=== PATIENT | female | born 1955 | race Caucasian/White ===

== ENCOUNTER 2023-01-25 12:03 | Inpatient (IN) | payer MEDICARE, MEDICAID ==
[~2023-01-25] VITALS: Ht 165.1 cm; Wt 94.0 kg
[~2023-01-25 12:03] MED LIST: ALLOPURINOL100 MG PO; AMLODIPINE BESY10 MG PO; AMOX TR-K CLV1 EAC1 PO; ATORVASTATIN CA80 MG PO; AUGMENTIN 500-1 EACH PO; AZATHIOPRINE50 MG PO; CARVEDILOL25 MG PO; FLUTICASONE PRO16 GM NAS; GABAPENTIN100 MG PO; ISOSORBIDE MON120 MG PO; LIALDA1.2 GM PO; LOSARTAN POTASS25 MG PO; LOSARTAN POTASS50 MG PO; MESALAMINE1.2 GM PO; METFORMIN HCL500 MG PO; QVAR REDIHALE10.6 G1; SIMVASTATIN10 MG PO; SODIUM BICARBO650 MG PO; VENTOLIN HFA18 GM INH; VITAMIN B-121000 MCG PO; VITAMIN D325 MCG PO
[2023-01-25 12:14] LABS: BASOPHILS 2.2 % (0-2); EOSINOPHILS 0.9 % (0-6); HEMATOCRIT 30.9 % (35.0-50.0); HEMOGLOBIN 9.7 g/dL (12.0-18.0); LYMPHOCYTES 9.8 % (24-44); MCH 30.4 (27-36); MCHC 31.3 g/dl (30-36); MONOCYTES 5.7 % (0-12); NEUTROPHILS 81.4 % (39-80); PLATELET COUNT 85 K/uL (140-440); RBC 3.19 M/ul (4.3-5.7); RDW 17.3 (10.5-15.0)
[2023-01-25 12:28] LABS: BASE EXCESS, BLOOD GAS -12.2 mmol/L (-2-2); PCO2, BLOOD GAS 26.2 mmHg (35-45); PO2, BLOOD GAS 87 mmHg (80-100); TOTAL CO2, BLOOD GAS 13.8
[2023-01-25 12:30] LABS: OXYGEN RECEIVED, BLOOD GAS 80%
[2023-01-25 12:41] LABS: ALBUMIN 3.4 g/dL (3.4-5.0); ALBUMIN/GLOBULIN RATIO 0.71 (1.1-2.4); ANION GAP 21.2 (7-21); BILIRUBIN, TOTAL 1.6 ng/dL (0.2-1.0); BUN/CREATININE RATIO 16.17 (6.0-28.6); CALCIUM 8.9 mg/dL (8.5-10.1); CREATININE, SERUM 2.35 mg/dL (0.55-1.02); POTASSIUM 4.2 mmol/L (3.5-5.1); PROTEIN, TOTAL 8.2 g/dL (6.4-8.2)
[2023-01-25 12:56] LABS: LACTIC ACID, BLOOD 5.7 mmol/L (0.4-2.0)
[2023-01-25 13:11] LABS: INFLUENZA B NAA NEGATIVE (NEGATIVE); RESPIRATORY SYNCYTIAL VIR NAA NEGATIVE (NEGATIVE)
[2023-01-25 13:54] VITALS: BP 99/69
--- NOTE | 2023-01-25 14:18 | NUR ---
1330-transported pt to [facility] rm 127 from er. report received from Ro and Eugenia RNs. pt on BIPAP and multiple abx. assessment complete. daughter Marce in room with pt.
--- NOTE | 2023-01-25 14:23 | NUR ---
MD AWARE OF FINDINGS. PT POSITIVE FOR SEPSIS AND RECEIVEING TREATMENTS.
[2023-01-25 14:58] VITALS: BP 104/74
[2023-01-25 15:04] LABS: BILIRUBIN, URINE NEGATIVE (negative); BLOOD/HGB, URINE SMALL (Negative); KETONE, URINE NEGATIVE (Negative); LEUK ESTERASE, URINE NEGATIVE (negative); NITRITE, URINE NEGATIVE (negative)
[2023-01-25 15:14] LABS: BACTERIA, URINE RARE /hpf (negative); CASTS, URINE NONE SEEN \\lpf; COLLECTION TYPE, URINE CATH; CRYSTALS, URINE NONE SEEN (0-1+); EPITHELIAL CELLS, URINE SQUAMOUS 2+ /lpf (0-1+); REFLEX CULTURE, URINE No (No); WHITE BLOOD CELLS, URINE 0-1 /HPF (0-5)
[2023-01-25 15:16] LABS: BASE EXCESS, BLOOD GAS -7.7 mmol/L (-2-2); HCO3, BLOOD GAS 16.2 mmol/L (22-26); O2 SATURATION, BLOOD GAS 95.1 % (95.0-100.0); PH, BLOOD GAS 7.36 (7.35-7.45); PO2, BLOOD GAS 80 mmHg (80-100)
[2023-01-25 15:17] LABS: OXYGEN RECEIVED, BLOOD GAS 50%
--- NOTE | 2023-01-25 15:17 | NUR ---
pt laying right lateral with bipap in place. pt resting with eyes closed. pt medicated for fever. call light given. pt tolerating po fluids
[2023-01-25 15:43] LABS: BASOPHILS 0.3 % (0-2); EOSINOPHILS 0.1 % (0-6); HEMATOCRIT 26.5 % (35.0-50.0); HEMOGLOBIN 8.6 g/dL (12.0-18.0); LYMPHOCYTES 6.2 % (24-44); MCH 30.5 (27-36); MCHC 32.5 g/dl (30-36); MCV 93.8 fl (81-99); MONOCYTES 2.5 % (0-12); NEUTROPHILS 90.9 % (39-80); PLATELET COUNT 77 K/uL (140-440); RBC 2.82 M/ul (4.3-5.7); RDW 15.9 (10.5-15.0)
[2023-01-25 15:54] LABS: INR 1.23 (0.80-1.30); PARTIAL THROMBOPLASTIN TIME 30.2 Sec (22.9-41.3); PROTIME 14.9 Sec (11.2-14.2)
[2023-01-25 16:00] VITALS: BP 96/61
--- NOTE | 2023-01-25 16:00 | NUR ---
CRITICAL TROPONIN LEVEL CALLED FROM LAB. MD NOTIFIED. ORDERS TO START HEPARIN BOLUS FOLLOWED BY DRIP. PT UPDATED ON LAB VALUES AND AGREEABLE WITH PLAN OF CARE.
[2023-01-25 17:00] VITALS: BP 112/72
--- NOTE | 2023-01-25 17:00 | NUR ---
DR. MERRITT AWARE OF MG LEVEL. MG 2 GMS ORDERED. PATEINT IS AWARE OF PENDING TRANSFER TO HIGHER LEVEL OF CARE. PATIENTS MCKAY (IZAIAH) UPDATED VIA PHONE. PATIENT IS RESTING IN BED, BIPAP REMAINS ON. REMAINS ON 50% FIO2 I-17/E-8.
--- NOTE | 2023-01-25 17:08 | NUR ---
AND NIMO RN CALLING [facility] TO [facility]SF[facility] PT. PT AGREEABLE WITH PLAN TO TRANSFER.PT REMAINS ON BIPAP @ 50% FIO2 AND IS TOLERATING. VSS. HEPARIN DRIP CONTINUED.
[2023-01-25 18:00] VITALS: BP 113/76
--- NOTE | 2023-01-25 18:53 | NUR ---
1849-CALL FROM TRANSFER CENTER FOR ACCEPTANCE TO [facility]
[2023-01-25 19:06] VITALS: BP 103/67
--- NOTE | 2023-01-25 19:19 | NUR ---
CALLED REPORT TO JESICA STARK AT [facility]
--- NOTE | 2023-01-25 22:06 | NUR ---
PATIENT KAITLIN WAS DISCHARGED TO [facility] IN [place], [place] VIA [facility]. SHE WAS TRANSFERRED VIA GURNEY WITH VSS AND AND WDL PER MONITOR. BIPAP REMAINED IN USE 17/8 40%FIO2 RR 16. O2 SATURATION 97%. NEURO- ALERT AND ORIENTED X4. DENIES PAIN OR DISCOMFORT MOVES ALL EXTREMITIES, PERRL CARDIAC- S1/S2, AFEBRILE, +1EDEMA IN BLE RESP- BIPAP IN PLACE, DIMINISHED LUNG SOUNDS, ABLE TO COUGH AND DEEP BREATH, ABLE TO CLEAR AIRWAY, BIPAP SETTING NOTED ABOVE GI/- FIRM AND DISTENDED ABDOMEN, NORMOACTIVE BOWEL TONES IN ALL 4 QUADRANTS, NON-TENDER ABDOMEN INT-SEE ASSESSMENT LDA- BUE IV LINES PATENT AND INTACT INDWELLING GODDARD CATHETER REPORT CALLED TO ANITHA AT [facility] CARDIAC ICU
--- NOTE | 2023-01-25 22:30 | NUR ---
update given to patient's daughter ruiz
--- NOTE | 2023-01-27 06:52 | EKG ---
[facility] [address] [facility] [place] [address] Signed Accelerated Junctional rhythm Nonspecific ST and T wave abnormality Abnormal ECG When compared with ECG of 09-DEC-2022 17:18, Junctional rhythm has replaced Sinus rhythm Vent. rate has increased BY 46 BPM T wave inversion more evident in Inferior leads Nonspecific T wave abnormality, worse in Lateral leads Confirmed by SILVIA MERRITT MD ([id number]) on 01/27/2023 6:52:08 AM Electronically Signed By: SILVIA MERRITT 01/27/23 0652 PATIENT NAME: KAREN MADRIGAL JHONNY Electrocardiogram DATE OF : 59 PHYSICIAN: SILVIA MERRITT REPORT #: [id number] REPORT IS CONFIDENTIAL AND NOT TO BE RELEASED WITHOUT AUTHORIZATION
--- NOTE | 2023-01-27 06:52 | EKG ---
[facility] [address] [facility] [place] [address] Signed Normal sinus rhythm ST \T\ T wave abnormality, consider anterolateral ischemia Prolonged QT Abnormal ECG When compared with ECG of 25-JAN-2023 12:14, (Unconfirmed) Sinus rhythm has replaced Junctional rhythm T wave inversion now evident in Anterior leads Confirmed by SILVIA MERRITT MD ([id number]) on 01/27/2023 6:52:28 AM Electronically Signed By: SILVIA MERRITT 01/27/23 0652 PATIENT NAME: KAREN MADRIGAL JHONNY Electrocardiogram DATE OF : 59 PHYSICIAN: SILVIA MERRITT REPORT #: [id number] REPORT IS CONFIDENTIAL AND NOT TO BE RELEASED WITHOUT AUTHORIZATION
--- NOTE | 2023-01-27 06:52 | EKG ---
[facility] [address] [facility] [place], [place] [address] Signed Normal sinus rhythm ST \T\ T wave abnormality, consider anterolateral ischemia Prolonged QT Abnormal ECG No previous ECGs available Confirmed by SILVIA MERRITT MD ([id number]) on 01/27/2023 6:52:35 AM Electronically Signed By: SIVLIA MERRITT 01/27/23 0652 PATIENT NAME: KAREN MADRIGAL JHONNY Electrocardiogram DATE OF : 59 PHYSICIAN: SILVIA MERRITT REPORT #: [id number] REPORT IS CONFIDENTIAL AND NOT TO BE RELEASED WITHOUT AUTHORIZATION
== END 2023-01-25 21:53 | disposition short-term general hospital (02) | DRG 871 ==
LOC: ED 12:03 → CCU 13:17
PROVIDERS: Emergency Medicine; ADMIT Internal Medicine; ATTEND Internal Medicine
PROC: 5A09357 Assistance with Respiratory Ventilation, Less than 24 Consecutive Hours, Continuous Positive Airway Pressure (ICD-10-PCS; principal; 2023-01-25)
PROC: 4A033R1 Measurement of Arterial Saturation, Peripheral, Percutaneous Approach (ICD-10-PCS; 2023-01-25)
PROC: 3E03329 Introduction of Other Anti-infective into Peripheral Vein, Percutaneous Approach (ICD-10-PCS; 2023-01-25)
DX: A41.9 Sepsis, unspecified organism (principal); I21.4 Non-ST elevation (NSTEMI) myocardial infarction; J18.9 Pneumonia, unspecified organism; J96.90 Respiratory failure, unspecified, unspecified whether with hypoxia or hypercapnia; E87.20 Acidosis, unspecified; N18.4 Chronic kidney disease, stage 4 (severe); I13.0 Hypertensive heart and chronic kidney disease with heart failure and stage 1 through stage 4 chronic kidney disease, or unspecified chronic kidney disease; Z66 Do not resuscitate; I50.9 Heart failure, unspecified; I25.10 Atherosclerotic heart disease of native coronary artery without angina pectoris; M19.90 Unspecified osteoarthritis, unspecified site; E66.9 Obesity, unspecified; K74.60 Unspecified cirrhosis of liver; E78.2 Mixed hyperlipidemia; E11.22 Type 2 diabetes mellitus with diabetic chronic kidney disease; Z98.890 Other specified postprocedural states; Z87.19 Personal history of other diseases of the digestive system; Z88.7 Allergy status to serum and vaccine; Z88.8 Allergy status to other drugs, medicaments and biological substances; Z79.899 Other long term (current) drug therapy; Z79.51 Long term (current) use of inhaled steroids; Z79.2 Long term (current) use of antibiotics; Z11.52 Encounter for screening for COVID-19; Z68.34 Body mass index [BMI] 34.0-34.9, adult
CPT/HCPCS: 36415; 36600; 51702; 71045; 80053; 81001; 82803; 83605; 83735; 83880; 84484; 85025; 85610; 85730; 87040; 87502; 93005; 93010; 94640; 94660; 99285-25; A9270; C9803; J0456; J0696; J1644; J1940; J2930; J3475; J7121; U0002

== ENCOUNTER 2025-01-11 08:15 | Inpatient (IN) | payer MEDICARE, OTHER ==
[~2025-01-11] VITALS: Ht 165.1 cm; Wt 96.2 kg
[~2025-01-11 08:15] MED LIST changes: +ADULT LOW DOSE81 MG PO; -CARVEDILOL25 MG PO; +CLOPIDOGREL75 MG PO; +COREG6.25 MG PO; +GLYCOTROL CAPS1 EACH PO; +METOPROLOL SUCC25 MG PO; +NITROSTAT0.4 MG SL; +OSTERA TABLET1 EACH PO
[2025-01-11] MEDS ORDERED: KETOROLAC TROMETHAMINE 15 MG/ML VIAL IV ONE (08:45)
[2025-01-11] MEDS ORDERED: CEFAZOLIN SODIUM 2 GM in SODIUM CHLORIDE 0.9% 100 ML IV ONE (09:00)
[2025-01-11 09:07] LABS: BASOPHILS 0.3 % (0.1-1.2); EOSINOPHILS 1.1 % (0.7-5.8); LYMPHOCYTES 4.5 % (19.3-51.7); MCH 29.1 PG (25.6-32.2); MCHC 30.9 g/dL (32.2-35.5); MCV 94.1 fL (79.4-94.8); MONOCYTES 6.6 % (4.7-12.5); NEUTROPHILS 86.9 % (34.0-71.1); RBC 2.37 M/uL (3.93-5.22)
[2025-01-11 09:25] LABS: LACTIC ACID, BLOOD 1.3 mmol/L (0.4-2.0)
[2025-01-11 09:28] LABS: ALT (SGPT) 23.0 U/L (14-59); AST (SGOT) 25.0 U/L (15-37); GLOMERULAR FILTRATION RATE,EST 21.0 mL/min (>60); PROTEIN, TOTAL 7.2 g/dL (6.4-8.2); UREA NITROGEN 36.0 mg/dL (7-18)
[2025-01-11 09:37] LABS: INR 1.28 (0.80-1.30); PROTIME 15.5 Sec (11.2-14.2)
[2025-01-11] MEDS ORDERED: ACETAMINOPHEN 500 MG TAB PO ONE (10:30)
[2025-01-11 13:42] LABS: ABO A; ANTIBODY SCREEN NEGATIVE; RH POSITIVE
[2025-01-11] MEDS ORDERED: GLUCAGON,HUMAN RECOMBINANT 1 MG/ML VIAL SUB-Q PRN (13:45)
[2025-01-11] MEDS ORDERED: DEXTROSE 50% 50 ML SYR IV PRN ×2 (13:45)
[2025-01-11] MEDS ORDERED: IBLOOD GLUCOSE TEST STRIP 1 EA TEST XX PRN (13:45)
[2025-01-11] MEDS ORDERED: DEXTROSE 5% 1,000 ML IV PRN (13:45)
[2025-01-11] MEDS ORDERED: ACETAMINOPHEN 325 MG TAB PO PRN (13:45)
--- NOTE | 2025-01-11 15:00 | NUR ---
REPORT RECEIVED FROM ED RN. PATIENT TRANSFERRED TO MED SURG BED, 2 PERSON STANDBY ASSIST. PATIENT TRANSPORTED TO UNIT VIA THIS RN, AND DIRECTOR OF SALES MARKETING VIA STRETCHER. PATIENT TOLERATED. WELL VITAL SIGNS COMPLETE.
[2025-01-11 15:01] VITALS: BP 170/68
[2025-01-11] MEDS ORDERED: FUROSEMIDE 40 MG TAB PO SCH (15:43)
[2025-01-11] MEDS ORDERED: DAPTOmycin 500 MG/10 ML VIAL IV SCH (15:44)
--- NOTE | 2025-01-11 16:00 | NUR ---
ASSESMENT COMPLETE. RADIOLOGY AT BEDSIDE. PATIENT IN BED. PERSONAL BELONGINGS AND CALL LIGHT IN REACH.
--- NOTE | 2025-01-11 16:43 | NUR ---
PATIENT IN BED, PUREWICK PLACED. TELE PLACED, SCHEDULED MEDICATIONS ADMINISTERED. CALL LIGHT AND PERSONAL BELONGINGS IN REACH. PATIENT DENIES CONCERNS.
[2025-01-11] MEDS ORDERED: IBLOOD GLUCOSE TEST STRIP 1 EA TEST VI SCH (17:00)
[2025-01-11] MEDS ORDERED: INSULIN LISPRO 100 UNIT/ML ML SUB-Q SCH (17:00)
--- NOTE | 2025-01-11 17:01 | NUR ---
SCHEDULED MEDICATIONS ADMINISTERED. PATIENT IN BED, CALL LIGHT IN REACH, LUNCH AND PERSONAL BELONGINGS AT BEDSIDE. PRN PAIN MEDICATION ADMINISTERED PER PATIENT REQUEST. PATIENT DENIES CONCERNS.
[2025-01-11 17:19] VITALS: BP 170/68
[2025-01-11 18:17] VITALS: BP 117/42
[2025-01-11 18:45] VITALS: BP 117/42
--- NOTE | 2025-01-11 19:35 | NUR ---
REPORT RECEIVED FROM DAY SHIFT RN. PATIENT RESTING IN BED. DENIES NEEDS AT THIS TIME. CALL LIGHT IN REACH.
[2025-01-11 20:00] LABS: BASOPHILS 0.5 % (0.1-1.2); EOSINOPHILS 1.7 % (0.7-5.8); LYMPHOCYTES 9.7 % (19.3-51.7); MCH 28.4 PG (25.6-32.2); MCHC 30.9 g/dL (32.2-35.5); MCV 92.2 fL (79.4-94.8); MONOCYTES 7.6 % (4.7-12.5); NEUTROPHILS 80.0 % (34.0-71.1); RBC 2.04 M/uL (3.93-5.22)
--- NOTE | 2025-01-11 20:03 | NUR ---
MD NORTH CALLED AND NOTIFIED OF CRITICAL LAB VALUE. STATES HE WILL COME TO FLOOR. NO NEW ORDERS.
[2025-01-11] MEDS ORDERED: OXYCODONE HCL 5 MG TAB PO PRN (20:15)
[2025-01-11 20:23] VITALS: BP 141/55
--- NOTE | 2025-01-11 20:29 | NUR ---
PATIENT RESTING IN BED REPORTING 8/10 BLE PAIN. PRN PAIN MEDICATION ADMINISTERED. SCHEDULED MEDICATION ADMINISTERED. ASSESSMENT COMPLETE. PATIENT DENIES FURTHER NEEDS AT THIS TIME. CALL LIGHT IN REACH.
[2025-01-11 20:51] VITALS: BP 141/55
[2025-01-11 20:59] LABS: IS CROSSMATCH COMPATIBLE
[2025-01-11 20:59] LABS: ABO A
[2025-01-11 21:00] LABS: RH POSITIVE
--- NOTE | 2025-01-11 21:29 | NUR ---
PT TOLERATING BLOOD TX AT THIS TIME. DENIES, ITCHING, SHORTNESS OF BREATH, BACK PAIN, CHILLS. PRBC INCREASED TO 150ML/HR VIA PUMP. PT INSTRUCTED TO CALL FOR S&S OF TRANSFUSION REACTION. VERBALIZES UNDERSTANDING. CALL MERRITT IN REACH.
--- NOTE | 2025-01-11 21:49 | EKG ---
[facility] [address] [facility] [place] [address] Signed Accelerated Junctional rhythm Left ventricular hypertrophy with repolarization abnormality ( R in aVL ) Abnormal ECG When compared with ECG of 25-JAN-2023 17:25, Junctional rhythm has replaced Sinus rhythm T wave inversion now evident in Inferior leads T wave inversion less evident in Anterolateral leads QT has shortened Confirmed by Nadira North MD () on 01/11/2025 9:48:57 PM Electronically Signed By: NADIRA NORTH MD 01/11/25 2149 PATIENT NAME: KAREN MADRIGAL Electrocardiogram DATE OF : 59 PHYSICIAN: NADIRA NORTH MD REPORT #: [id number] REPORT IS CONFIDENTIAL AND NOT TO BE RELEASED WITHOUT AUTHORIZATION
[2025-01-12] VITALS (11 sets, daily range): BP systolic 130–166; BP diastolic 50–67
--- NOTE | 2025-01-12 00:26 | NUR ---
PT TOLERATED BLOOD TX WITHOUT S&S OF REACTION. DENIES SHORTNESS OF BREATH, VOIDING YELLOW URINE WITH PUREWICK.
--- NOTE | 2025-01-12 01:08 | NUR ---
2ND UNIT OF BLOOD BEGAN AT 0049. 15 MINUTE CHECK NOTED INCREASED TEMP OF 101.0. PT REPORTS NO SHORTNESS OF BREATH, CHILLS, RASH OR BACK PAIN. RATE NOT INCREASED AT THIS TIME. PT CONTINUES TO BE MONITORED. RN AT BEDSIDE.
--- NOTE | 2025-01-12 01:13 | NUR ---
BLOOD TRANSFUSION STOPPED. MD NORTH NOTIFIED OF ELEVATED TEMP. TELEPHONE ORDER TO ADMINISTER TYLENOL. CONTINUE TO ADMINISTER BLOOD PRODUCTS.
--- NOTE | 2025-01-12 01:20 | NUR ---
PRN TYLENOL ADMINSITERED. PATIENT DENIES FURTHER NEEDS. CALL LIGHT IN REACH. PAUL STARK REMAINS IN ROOM.
--- NOTE | 2025-01-12 01:23 | NUR ---
PT REPORTS SUDDEN ONSET OF NAUSEA. PT WITH APPROX 100ML EMESIS. BLOOD PAUSED. PT REPORTS FEELING LIKE SHE DRANK WATER TO FAST. DOES NOT REPORT SHORTNESS OF BREATH, CHILLS OR ANY RASH NOTED. T 99.5 BP 159/62 (87), HR 81, RR 22, 92% RA. NOTIFIED.
--- NOTE | 2025-01-12 01:25 | NUR ---
MD NORTH UPDATED ON PATIENTS [place]. NO NEW ORDERS AT THIS TIME. VERBAL ORDER TO CONTINUE BLOOD TRANSFUSION.
--- NOTE | 2025-01-12 02:06 | NUR ---
PATIENT RESPIRATIONS ELAVATED. RR 30. MD NORTH UPDATED ON PATIENTS ELAVATED RESPIRATIONS. NEW ORDER RECEIVED. VERIFIED USING REPEATBACK METHOD.
--- NOTE | 2025-01-12 02:14 | NUR ---
SCHEDULED MEDICATIONS ADMINISTERED. MD NORTH IN ROOM TO ASSESS PATIENT. NO NEW ORDERS AT THIS TIME. PATIENT STATES SHE FEELS GOOD AND SHE IS OK. PATIENT DENIES NEEDS OR CONCERNS. CALL LIGHT IN REACH.
[2025-01-12] MEDS ORDERED: FUROSEMIDE 20 MG TAB PO ONE (02:15)
[2025-01-12] MEDS ORDERED: FUROSEMIDE 20 MG/2 ML VIAL IV ONE (02:15)
--- NOTE | 2025-01-12 02:35 | NUR ---
PATIENT INCONTINENT OF URINE. NEW BREIF AND PUREWICK PLACED AFTER ANDREY CARE PROVIDED. PATIENT DENIES FURTHER NEEDS AT THIS TIME. ALLYVEN PLACED ON GOLF BALL SIZED, CLOSED, REDDENED AREA, ON RIGHT INNER KNEE TO DECREASE PRESSURE. CALL LIGHT IN REACH.
--- NOTE | 2025-01-12 03:15 | NUR ---
PATIENT REPORTS 8/10 BLE PAIN. PRN PAIN MEDICATION ADMINISTERED. PATIENT DENIES FURTHER NEEDS AT THIS TIME. CALL LIGHT IN REACH.
[2025-01-12 05:40] LABS: BASOPHILS 0.4 % (0.1-1.2); EOSINOPHILS 1.0 % (0.7-5.8); LYMPHOCYTES 6.5 % (19.3-51.7); MCH 29.4 PG (25.6-32.2); MCHC 32.0 g/dL (32.2-35.5); MCV 92.1 fL (79.4-94.8); MONOCYTES 7.2 % (4.7-12.5); NEUTROPHILS 84.2 % (34.0-71.1); RBC 2.65 M/uL (3.93-5.22)
--- NOTE | 2025-01-12 05:56 | NUR ---
FURNITURE PAINTER OBTAINED VITALS AND I&O. BED WEIGHT OBTAINED. PT STATES NO NEEDS AT THIS TIME. CALL LIGHT WITHIN REACH.
[2025-01-12 06:02] LABS: ALT (SGPT) 13.0 U/L (14-59); AST (SGOT) 28.0 U/L (15-37); GLOMERULAR FILTRATION RATE,EST 22.0 mL/min (>60); PHOSPHORUS, INORGANIC 3.8 mg/dL (2.5-4.9); PROTEIN, TOTAL 6.4 g/dL (6.4-8.2); UREA NITROGEN 35.0 mg/dL (7-18)
--- NOTE | 2025-01-12 07:15 | NUR ---
RECIEVED REPORT FROM LINCOLN BARNES. PT IS AWAKE IN BED, RR EVEN AND UNLABORED. DENIES ANY NEEDS AT THIS TIME. CALL LIGHT AND PERSONAL BELONGINGS ARE WITHIN REACH.
--- NOTE | 2025-01-12 08:12 | NUR ---
UR CLINICAL REVIEW: 2 [place], MEETS INPT FOR CELLULITIS IV ANTIBIOTICS, WOUND NURSE CONSULT, MILD PULMONARY EDEMA MEDICARE INPT 01/11/25 @ 1346 ORDER MATCHES REG NO AUTH REQUIRED PER MEDICARE RULES DC TO HOME WHEN MEDICALLY READY DC REVIEW 01/13/25
[2025-01-12] MEDS ORDERED: ASPIRIN 81 MG CHEW PO SCH (09:00)
[2025-01-12] MEDS ORDERED: ENOXAPARIN SODIUM 40 MG/0.4 ML SYR SUB-Q SCH (09:00)
--- NOTE | 2025-01-12 09:06 | NUR ---
AM MEDICATIONS ADMNINISTERED PER THE EMAR. PT/OT IN ROOM TO WORK WITH PT NOW.
--- NOTE | 2025-01-12 10:00 | NUR ---
ULTRASOUND IS IN THE ROOM AT THIS TIME.
--- NOTE | 2025-01-12 11:29 | NUR ---
PT LAYING IN BED WITH EYES CLOSED. RR EVEN AND UNLABORED. CPOX AT BEDSIDE. CALL LIGHT AND PERSONAL BELONGINGS ARE WITHIN REACH.
[2025-01-12] MEDS ORDERED: PHARMACY RENAL DOSE ADJUSTMENT 1 DOSE MISC PO SCH (12:00)
[2025-01-12] MEDS ORDERED: VOLTAREN ARTHRI20 GM TOP (12:28)
[2025-01-12] MEDS ORDERED: ADVIL200 MG PO (12:28)
--- NOTE | 2025-01-12 12:28 | NUR ---
MED REC COMPLETE
--- NOTE | 2025-01-12 12:36 | NUR ---
PT LAYING IN BED WITH EYES CLOSED. RR EVEN AND UNLABORED. CALL LIGHT AND PERSONAL BELONGINGS ARE WITHIN REACH.
[2025-01-12] MEDS ORDERED: FUROSEMIDE 40 MG TAB PO SCH (13:00)
--- NOTE | 2025-01-12 13:37 | NUR ---
Spoke with Sabrina. She lives in the [address] alone. She has an elevator. He daughter lives nearby and assists her. Her daughter orders groceries for her and delivers. Pt uses a 4 WW, Shower chair, rails in the bathroom. She states she has mobility scooter. She has a van, but is unable to get into it, she no longer drives. She uses food stamps. She denies financial or safety concerns. She complains of burning foot pain, she believes this is from neuropathy. She wants to return home on dc and declines a SNF. She is agreeable to HH if needed on dc.
--- NOTE | 2025-01-12 13:45 | NUR ---
CARDIAC NURSE CONSULTING WITH PT IN ROOM AT THIS TIME.
--- NOTE | 2025-01-12 13:55 | NUR ---
Education completed on CHF. Pt verbalizes that she has had CHF for years and knows quite alot about. Pt was receptive to education and verbalized understanding. Handout given AHA Get with the Guidelines, Heart Failure.
--- NOTE | 2025-01-12 14:02 | NUR ---
PT HAD SUDDEN ONSET OF NAUSEA WITH EMESIS WHILE SEEING CARDIAC INTERIOR MECHANIC. I REVIEWED MEDICATIONS WITH PATIENT AND OFFERED ZOFRAN, PT DECLINED. PRIMARY RN INFORMED WELL .
--- NOTE | 2025-01-12 14:07 | NUR ---
CALL REC'D FROM LAB, TROPONIN 215.6. MD AND PRIMARY RN NOTIFIED
--- NOTE | 2025-01-12 14:55 | NUR ---
PT LAYING IN BED WITH EYES OPEN. PT REPORTS NO PAIN OR NAUSEA. IV ASSESSED. FOCUSED GI AND CARDIAC ASSESSMENTS COMPLETE AND DOCUMENTED IN CHART. DRESSINGS TO BLE REMOVED AND REPLACED WITH NEW ALEVEYNS. DRESSING TO R ANKLE HAD MODERATE AMOUNT OF PURULENT DRAINAGE. WOUND ON R ANKLE CONTINUED TO SLOWLY OOZE THICK, PURULENT DRAINAGE. DRESSING TO R KNEE WAS CLEAN, WOUND AREA REMAINS REDDENED AND TENDER. DRESSING CHANGED AT THIS TIME. DRESSING TO L HOYT HAD MODERATE AMOUNT OF DRY AND NEW SEROSANGINEOUS DRAINAGE. WOUND CONTINUED TO LEAK DRAINAGE BETWEEN REMOVAL OF OLD DRESSING AND THE APPLICATION OF THE NEW ALEYVN. PT STATED NO FURTHER NEEDS AT THIS TIME. CALL LIGHT AND PERSONAL BELONGINGS ARE WITHIN REACH.
--- NOTE | 2025-01-12 15:47 | NUR ---
PATIENT IS LYING IN BED WITH EYES CLOSED AND RESPIRATIONS ARE EVEN AND UNLABORED. PATIENT IS ON ROOM AIR. PATIENT IS ON TELEMETRY NUMBER 9. PATIENT STATED NO FURTHER NEEDS AT THIS TIME. CALL LIGHT AND PERSONAL BELONGINGS ARE WITHIN REACH.
[2025-01-12 15:56] LABS: BASOPHILS 0.3 % (0.1-1.2); EOSINOPHILS 0.9 % (0.7-5.8); LYMPHOCYTES 6.0 % (19.3-51.7); MCH 29.8 PG (25.6-32.2); MCHC 32.6 g/dL (32.2-35.5); MCV 91.5 fL (79.4-94.8); MONOCYTES 7.9 % (4.7-12.5); NEUTROPHILS 84.4 % (34.0-71.1); RBC 2.82 M/uL (3.93-5.22)
--- NOTE | 2025-01-12 16:36 | NUR ---
PT RESTING IN BED WITH EYES CLOSED. RR EVEN AND UNLABORED. CALL LIGHT AND PERSONAL BELONGINGS ARE WITHIN REACH.
--- NOTE | 2025-01-12 17:09 | NUR ---
IN ROOM TO PREP PT FOR CT. PUREWICK SUCTION WAS OFF. PT'S BRIEF AND CHUX WERE SATURATED. PUREWICK REMOVED AND FRESH BRIEF PLACED ON PT. KARIN RODRIGUEZ ROLLED UNDER PT FOR TRANSFER TO CT TABLE. PT TAKEN TO CT BY CT STAFF.
--- NOTE | 2025-01-12 17:38 | NUR ---
PATIENT IS IN BED AT THIS TIME, CLERK OF SUPERIOR COURT CHARTED VITALS AND I&O'S, CHANGED PUREWICK AND LINESAVANAH, TIFFANY BROTHERS AND GABBY, PATIENT REFUSED BEDBATH, CALL LIGHT WITH IN REACH AND NOTHING ELSE NEEDED AT THIS TIME.
--- NOTE | 2025-01-12 18:09 | NUR ---
PT RESTING IN BED ON SIDE WITH EYES CLOSED. RR EVEN AND UNLABORED. CALL LIGHT AND PERSONAL BELONGINGS ARE WITHIN REACH.
--- NOTE | 2025-01-12 19:31 | NUR ---
REPORT RECEIVED FROM DAY SHIFT RN. PATIENT RESTING IN BED. DENIES NEEDS AT THIS TIME. CALL LIGHT IN REACH.
--- NOTE | 2025-01-12 20:15 | NUR ---
COMMISSIONING AGENT OBTAINED VITALS AND I&O. PT STATES NO NEEDS AT THIS TIME. CALL LIGHT WITHIN REACH.
--- NOTE | 2025-01-12 20:25 | NUR ---
PATIENT RESTING IN BED. SCHEDULED MEDICATION ADMINISTERED. PATIENT DENIES PAIN AT THIS TIME, DECLINING THE NEED FOR PAIN MEDICATION. PATIENT DENIES FURTHER NEEDS AT THIS TIME. CALL LIGHT IN REACH.
--- NOTE | 2025-01-12 21:00 | NUR ---
PT C/O PAIN AND SPASMS TO BLE. PT REQUESTING PAIN MEDICATION. PT MEDICATED WITH 10MG PO OXYCODONE. PT INSTRUCTED TO CALL FOR ASSISTANCE, CALL MERRITT WITHIN REACH, BED IN LOW POSITION AND LOCKED. SIDERAILS UP X3. PUREWICK IN PLACE. NO ADDITIONAL NEEDS VERBALIZED.
--- NOTE | 2025-01-12 22:03 | EKG ---
[facility] [address] [facility] [place] [address] Signed Normal sinus rhythm ST \T\ T wave abnormality, consider lateral ischemia Abnormal ECG When compared with ECG of 11-JAN-2025 08:45, Sinus rhythm has replaced Junctional rhythm Confirmed by Nadira North MD () on 01/12/2025 10:03:13 PM Electronically Signed By: NADRIA NORTH MD 01/12/252202 PATIENT NAME: KAREN MADRIGAL JHONNY Electrocardiogram DATE OF : 59 PHYSICIAN: NADIRA NORTH MD REPORT #: [id number] REPORT IS CONFIDENTIAL AND NOT TO BE RELEASED WITHOUT AUTHORIZATION
--- NOTE | 2025-01-12 22:50 | NUR ---
PATIENT RESTING IN BED ON BACK WTIH EYES CLOSED. RESPIRATIONS EVEN AND UNLABORED. CALL LIGHT IN REACH.
--- NOTE | 2025-01-12 23:07 | NUR ---
CALL PLACED TO MD NORTH REGARDING CRITICAL LAB VALUE. NO NEW ORDERS.
--- NOTE | 2025-01-12 23:20 | NUR ---
ordered culture, aerobic w/ gram stain (source ankle) not yet collected-ordered by ed . confirmed with amandeep in lab. spoke to dr howard md instructed to continue with ordered swab. amandeep in lab to add in comments section pt on dapto and received x1 dose ancef. primary rn darien updated.
[2025-01-13] VITALS (10 sets, daily range): BP systolic 111–143; BP diastolic 51–69
--- NOTE | 2025-01-13 00:45 | NUR ---
CULTURE TO R ANKLE OBTAINED. DRESSING REMOVED, WOUND MALODOROUS, PINK/YELLOW DRAINAGE, SUBCUTANEOUS TISSUE NOTED. NEW ALLEVIN APPLIED. VS COMPLETED. PT NOTED TO HAVE TEMP 100.5, 650MG TYLENOL PO GIVEN. PUREWICK CHANGED. PT INSTRUCTED TO CALL FOR ASSISTANCE, VERBALIZES UNDERSTANDING. CALL MERRITT IN REACH, BED IN LOW POSITION AND LOCKED. SIDERAILS UP X 4.
--- NOTE | 2025-01-13 04:39 | NUR ---
PATIENT RESTING IN BED WITH EYES CLOSED. RESPIRATIONS EVEN AND UNLABORED. CALL LIGHT IN REACH.
--- NOTE | 2025-01-13 05:09 | NUR ---
PULPWOOD BUYER OBTAINED VITALS AND I&O. PT STATES NO NEEDS AT THIS TIME. CALL LIGHT WITHIN REACH.
[2025-01-13 05:26] LABS: BASOPHILS 0.3 % (0.1-1.2); EOSINOPHILS 1.3 % (0.7-5.8); LYMPHOCYTES 7.6 % (19.3-51.7); MCH 29.3 PG (25.6-32.2); MCHC 31.6 g/dL (32.2-35.5); MCV 92.5 fL (79.4-94.8); MONOCYTES 6.5 % (4.7-12.5); NEUTROPHILS 83.5 % (34.0-71.1); RBC 2.94 M/uL (3.93-5.22)
[2025-01-13 05:50] LABS: AST (SGOT) 25.0 U/L (15-37); GLOMERULAR FILTRATION RATE,EST 19.0 mL/min (>60); PROTEIN, TOTAL 6.9 g/dL (6.4-8.2); UREA NITROGEN 39.0 mg/dL (7-18)
[2025-01-13 06:03] LABS: ALT (SGPT) 7.0 U/L (14-59)
--- NOTE | 2025-01-13 07:20 | NUR ---
VERBAL REPORT RECIEVED BY LINCOLN BARNES. PATIENT AWAKE IN BED AT THIS TIME. DENIES ANY NEEDS, CALL LIGHT IN REACH.
--- NOTE | 2025-01-13 09:30 | NUR ---
In with physical therapy to attempt to work with patient. Patient declining to attempt to get up out of bed. Patient reports her pain is "too severe".
--- NOTE | 2025-01-13 09:36 | NUR ---
MORNING MEDICATION ADMINISTRATION COMPLETE. PATIENT COMPLAINS OF 5/10 BLE PAIN, PATIENT GIVEN PRN PAIN MEDICATION (SEE EMAR). WARM BLANKET PROVIDED PER PATIENT REQUEST. DENIES ANY FURTHER NEEDS AT THIS TIME. CALL LIGHT IN REACH.
--- NOTE | 2025-01-13 10:01 | NUR ---
INTO SEE PATIENT. PATIENT STILL PLANS TO GO HOME TO APARTMENT WITH HELP FROM DAUGHTER. SPOKE WITH HER ABOUT PT AND HOME HEALTH. PATIENT STATES "I DO NOT WANT TO DO PT THEY TOURTURED ME YESTERDAY AND I AM NOT DOING IT TODAY." NO FUTHER CM NEEDS AT THIS TIME.
--- NOTE | 2025-01-13 11:22 | NUR ---
PATIENT RESTING IN BED EYES CLOSED, BREATHING EVEN AND UNLABORED. CALL LIGHT IN REACH BED IN LOW POSITION.
--- NOTE | 2025-01-13 13:01 | NUR ---
NUTRITION CONSULT IN FOR PRESSURE INJURY TO R KNEE, NO DRAINAGE, NOT OPEN. PATIENT IS ON A 60 GM CONS CARB/2 GM NA+ DIET, EATING 50% OF MEALS SO FAR. PER CHART REVIEW FROM PAST ADMITS IN 2022, PATIENT'S WEIGHT HAS BEEN STABLE AT ~207 LBS. THIS ADMIT WEIGHT WAS 218 LBS BUT WITH LASIX TODAY'S WEIGHT IS 207 LBS. PATIENT IS BUSY WITH NURSING AT THIS TIME. NO KNOWN FOOD ALLERGIES. CONT. CURRENT DIET. PATIENT APPEARS TO BE AT MODERATE NUTRITION RISK DUE TO [employer] APPETITE AND HX OF CHF, DM, CELLULITIS. PATIENT MAY BENEFIT FROM ONS IF AGREEABLE. RD TO F/U ON THURSDAY IF PATIENT STILL HERE.
--- NOTE | 2025-01-13 14:50 | NUR ---
Patient in bed watching tv, no acute distress. Patient reports she still feels too painful to get out of bed, pt encouraged to reposition self in bed.
--- NOTE | 2025-01-13 16:11 | NUR ---
PATIENT HAS INCREASED WEEPING TO BLE WHEN ASSISTED TO BEDSIDE COMMODE TWO ADDITIONAL ALIVAN TO BLE PLACED TO CATCH DRAINAGE. PATIENT ASSISTED BACK TO BED VIA 2PA, PATIENT TOLERATED THIS POORLY DUE TO INCREASED PAIN AND WEAKNESS IN THE BLE. PATIENT GIVEN PRN PAIN MEDICATION FOR 10/10 (SEE EMAR) AND REPOSITIONED IN BED. PATIENT DENIES ANY FURTHER NEEDS AT THIS TIME. CALL LIGHT IN REACH.
--- NOTE | 2025-01-13 16:19 | NUR ---
PT WAS WORKING WITH [facility] AND WAS ON THE COMMODE, SO I COMPLETED A FULL LINEN CHANGE. UPON ATTEMPTING TO GET BACK INTO BED, THE PT REPORTED 10:10 LEG PAIN AND COULD NOT ASSIST WITH RETURNING TO BED. 4 RN'S AND THE PHYSICAL THERAPIST ASSISTED THE PT BACK TO BED. THIS INFORMATION SECURITY SYSTEMS INSTRUCTOR THEN REPLACED HER PUREWICK AND DIAPER, ALONG WITH COMPLETING ANDREY CARE PT REPORTED SHE WOULD NOT GET OUT OF BED AGAIN TODAY.
--- NOTE | 2025-01-13 19:10 | NUR ---
RECIEVED REPORT FORM LINCOLN WILSON AND LINCOLN MACKEY. PATIENT RESTING IN BED ON LEFT SIDE IN BED, WITH EYES CLOSED, AUDIBLE SNORING, RESPIRATIONS EVEN AND UNLABORED. NO NEEDS IDENTIFIED AT THIS TIME. CALL LIGHT AND BELONGINGS WITHIN REACH.
--- NOTE | 2025-01-13 20:41 | NUR ---
SCHEDULED MEDICATION ADMINISTERED WITHOUT DIFFICULTY. VS AND I&O'S COMPLETED WITHOUT DIFFICULTY. PATIENT TEMP 99.8, SHE REFUSED TYLENOL, COOL WASHCLOTH PROVIDED TO FOREHEAD, BLANKETS REMOVED TO ONLY SHEET, ROOM TEMP LOWERED. PUREWICK IN PLACE TO SUCTION. PATIENT DENIES PAIN. CBG WITHIN NORMAL LIMITS. PATIENT REPOSITIONED FOR MED ADMINISTRATION. NEW GOWN PLACED. TELE ON. ASSESSMENT COMPLETED. PATIENT DENIES FURTHER NEEDS AT THIS TIME. BELONGINGS AND CALL LIGHT IN REACH.
--- NOTE | 2025-01-13 22:45 | NUR ---
ROUNDED ON PATIENT, RESTING ON LEFT SIDE IN BED, AWAKE AND ALERT WATCHING TV. PATIENT DENIES ANY PAIN, NEW COOL WASHCLOTH GIVEN FOR FOREHEAD. TEMP RECHECKED AT 99.4. PATIENT DENIES NEEDS AT THIS TIME. CALL LIGHT IN REACH.
[2025-01-14] VITALS (11 sets, daily range): BP systolic 107–146; BP diastolic 43–75
--- NOTE | 2025-01-14 00:30 | NUR ---
ROUNDED ON PATIENT. PATIENT AWAKE, LAYING ON LEFT SIDE AND WATCHING TV. FRESH WATER PROVIDED PER REQUEST. DENIES OTHER NEEDS, CALL LIGHT IN REACH
--- NOTE | 2025-01-14 01:55 | NUR ---
PAPER NOVELTY MAKER OBTAINED VITALS AND I&O. PT STATES NO NEEDS AT THIS TIME. CALL LIGHT WITHIN REACH.
--- NOTE | 2025-01-14 03:28 | NUR ---
ROUNDED ON PATIENT. LAYING ON LEFT SIDE, EYES CLOSED, RESPIRATIONS EVEN AND UNLABORED. PUREWICK IN PLACE TO SUCTION. NO NEEDS IDENTIFIED AT THIS TIME. CALL LIGHT IN REACH.
[2025-01-14 05:06] LABS: BASOPHILS 0.5 % (0.1-1.2); EOSINOPHILS 1.3 % (0.7-5.8); LYMPHOCYTES 9.4 % (19.3-51.7); MCH 29.0 PG (25.6-32.2); MCHC 30.5 g/dL (32.2-35.5); MCV 95.2 fL (79.4-94.8); MONOCYTES 8.2 % (4.7-12.5); NEUTROPHILS 79.7 % (34.0-71.1); RBC 2.72 M/uL (3.93-5.22)
[2025-01-14 05:21] LABS: AST (SGOT) 20.0 U/L (15-37); GLOMERULAR FILTRATION RATE,EST 19.0 mL/min (>60); PROTEIN, TOTAL 6.6 g/dL (6.4-8.2); UREA NITROGEN 45.0 mg/dL (7-18)
[2025-01-14 05:28] LABS: ALT (SGPT) 4.0 U/L (14-59)
--- NOTE | 2025-01-14 05:34 | NUR ---
FOCUSED ASSESSMENT COMPLETED. VS AND I&O'S DOCUMENTED, PERICARE PERFORMED AND NEW PUREWICK, BREIF AND CHUX PLACED. PATIENT SLOW TO HELP ASSIST WITH MOVEMENT IN BED. PATIENT REPOSITIONED. NO NEEDS IDENTIFIED AT THIS TIME. CALL LIGHT AND BELONGINGS IN REACH.
--- NOTE | 2025-01-14 06:42 | NUR ---
SCHEDULED PAIN MEDS ADMINISTERED PER PATIENT REQUEST OF 10/30 BLE PAIN. SEE EMAR. PATIENT LAYING IN BED TEARFUL, ABLE TO TAKE PO MEDS WITHOUT DIFFICULTY. NO OTHER NEEDS AT THIS TIME. CALL LIGHT AND BELONGINGS IN REACH.
--- NOTE | 2025-01-14 09:21 | NUR ---
Patient awake, alert and oriented x3, no acute distress. Patient's vital signs are stable, afebrile. Patient reports ongoing lower bilat leg pain, pain medications in use. Left lateral leg dressing changed due to sturation of serosang drainage-new allyvn placed. lessened edema noted to legs today, redness appears to be improving as well. ISS provided to patient, patient able to demonstrate proper use. Personal supplies and call light within reach.
--- NOTE | 2025-01-14 09:35 | NUR ---
GOT PT BLANKET FOR WARMTH AND TURNED UP THE HEAT IN THE ROOM. PT GOT WARM WASH CLOTH FOR FACE AND HANDS. GOT PT FRESH ICE WATER AND COFFE AND CALL LIGHT IS ON THE SIDE OF THE BED WITHIN REACH. PT REPORTS NEEDING NOTHING MORE AT THIS TIME.
--- NOTE | 2025-01-14 11:15 | NUR ---
ADMIN TYLENOL 650MG PO FOR REPORTS OF 9/10 LOWER EXT PAIN. PATIENT SITTING UP IN CHAIR AT THIS TIME. SNACK PROVIDED.
[2025-01-14] MEDS ORDERED: PREGABALIN 75 MG CAP PO SCH (11:37)
--- NOTE | 2025-01-14 17:37 | NUR ---
Patient resting in bed, easily wakes to verbal stimuli. Patient reports improved leg pain this evening. Legs are elvated at this time. Fresh water at bedside. No current needs, personal supplies and call [facility] within reach.
--- NOTE | 2025-01-14 19:41 | NUR ---
Resting, eyes closed, no s/sx distress
--- NOTE | 2025-01-14 20:08 | NUR ---
Resting, eyes closed, no s/sx distress. awakens easily, alert and oriented, flat affect, cooperative. Abd large soft, KEVIN LBM was today "Lovely had several bm's today" staed. SL RW area. patent. edema to bilat lower extremities R 1+ LE and 2+ foot. Allevyn to inner right below popliteal area. redness around scabbed over areas, second Allevyn to ankle area L leg, edematous midcalf to toes, 1+, 2+ foot, redness around scabbend over areas, ss drainge both allevyn areas, chagned at this time. Elevated in pillows, denies neuropathy at this time, Tolerating liquids well. no c/o pain
--- NOTE | 2025-01-14 21:25 | NUR ---
PATIENT IS LAYING IN BED. BRIEF WAS DRY, CHECKED BY THIS SECURITY SERVICES SPECIALIST AND RN DEJAN. PUREWICK WAS CHANGED. CALL LIGHT WITHIN REACH AND NO FURTHER NEEDS AT THIS TIME.
--- NOTE | 2025-01-14 23:46 | NUR ---
resting, eyes closed, no s/sx distress. on room air, repositions legs elevated
[2025-01-15] VITALS (9 sets, daily range): BP systolic 135–144; BP diastolic 61–76
--- NOTE | 2025-01-15 02:57 | NUR ---
Pt resting, no urinary output since earlier on shift. Purewick in place, Denies need to urinate. no bladder distion palpated. Bladder scanned it showed approx 301 cc in bladder. denies discomfort. tolerated well, all procedures explained prior to. will wait and bladder scan again if no void
--- NOTE | 2025-01-15 03:42 | NUR ---
pt voided dark yellow urine, purewick in plce
--- NOTE | 2025-01-15 04:23 | NUR ---
Resting, eyes closed, no s/sx distress, hob elevated, repositions self in bed legs elevated. [facility]
[2025-01-15 05:33] LABS: BASOPHILS 0.4 % (0.1-1.2); EOSINOPHILS 2.8 % (0.7-5.8); LYMPHOCYTES 10.2 % (19.3-51.7); MCH 29.3 PG (25.6-32.2); MCHC 31.2 g/dL (32.2-35.5); MCV 94.0 fL (79.4-94.8); MONOCYTES 9.5 % (4.7-12.5); NEUTROPHILS 76.5 % (34.0-71.1); RBC 2.66 M/uL (3.93-5.22)
[2025-01-15 05:48] LABS: ALT (SGPT) 10.0 U/L (14-59); AST (SGOT) 26.0 U/L (15-37); GLOMERULAR FILTRATION RATE,EST 19.0 mL/min (>60); PROTEIN, TOTAL 6.5 g/dL (6.4-8.2); UREA NITROGEN 50.0 mg/dL (7-18)
--- NOTE | 2025-01-15 05:50 | NUR ---
Awake, cooperative with blood draw, vitals and assessment, repositioned in bed. Purewick changed, voided 375cc dark yellow urine. increased flatus heards, no bm. LBM 01/11. painful tender LE Allevyn in place. legs elevated. Daily bed weight 94.4KG. Pt encouraged to increae po fluids as tolerated stated understanding
--- NOTE | 2025-01-15 07:16 | NUR ---
VERBAL REPORT RECEIVED FROM LINCOLN WYLIE. PT RESTS IN BED WITH EYES CLOSED, RESP EVEN AND UNLABORED.
[2025-01-15] MEDS ORDERED: LINEZOLID 600 MG TAB PO SCH (09:00)
[2025-01-15] MEDS ORDERED: LACTATED RINGER'S 1,000 ML IV ONE (10:30)
--- NOTE | 2025-01-15 10:34 | NUR ---
PT RESTS IN BED, AWAKE AND ALERT. WATCHES TV. NO URINE OUTPUT SINCE 0600. LR BOLUS STARTED ORDERED. BED IN LOW POSITION, LOCKED, RAILS UP X3, BELONGINGS IN REACH, CALL LIGHT IN REACH. NO REQUESTS AT THIS TIME.
--- NOTE | 2025-01-15 11:40 | NUR ---
LR BOLUS COMPLETE. IV TO SALINE LOCK, NO REDNESS, SWELLING OR LEAKING NOTED. PUREWICK REMOVED, PT IN ROOM TO WORK WITH PT. DR. HOWELL NOTIFIED OF BOLUS COMPLETION.
--- NOTE | 2025-01-15 12:50 | NUR ---
PT RECEIVES OXYCODONE FOR PAIN 10/10 IN BLE, SEE EMAR.
--- NOTE | 2025-01-15 13:50 | NUR ---
WOUND CARE CONSULTED FOR WOUNDS TO BLE. HISTORY OF PRESENT ILLNESS: PT IS A 70 YEAR OLD FEMALE ADMITTED ON 01/11/25 FOR CELLULITIS OF THE BLE. REPORTS REDNESS AND SWELLING PRESENT FOR APPROXIMATELY ONE WEEK WITH BLISTERS THAT STARTED DRAINING. BLOOD CULTURES OBTAINED AND ADMISSION. WOUND CULTURE OBTAINED ON 01/13/25, PENDING RESULTS. US VENOUS DOPLEX NEGATIVE FOR DVT. CT OF LE SHOWS DIFFUSE ARTERIAL CALCIFICATIONS, 11 MM NODULE AT LEFT PERONEAL TUBERCLE. WHEN ASKED IF SHE HAS HAD LESIONS LIKE THIS ON HER LEGS BEFORE PT STATES, NO. PT DOES REPORT A HISTORY OF A CAT SCRATCH THAT REQUIRED SURGICAL INTERVENTION BY DR. ALEJANDRO. PT REPORTS REHAB AT [facility] FOR RECOVERY FROM HER PREVIOUS WOUND. PAST MEDICAL HISTORY: CIRRHOSIS, LE CELLULITITIS, CHF, DM, CKD, CAD, ARTHRITIS, ULCERATIVE COLITIS, CARDIAC STENT, HLD. ALLERGIES: FLU VACCINE, COMPAZINE, BECLOMETHASONE. WOUND ASSESSMENT: LEFT LATERAL LEG/ANKLE, SUSPECTED ETIOLOGY FOLICULITIS FURUNCLE. CLASSIFICATION: FULL THICKNESS SIZE: 3 CM X 4 CM X 0.1 CM WOUND BASE: 100% YELLOW AND BROWN NECROTIC TISSUE. EDGES: INDISTINCT EXUDATE: Brown MODERATE AMOUNT OF ACTIVE DRAINAGE. ANDREY WOUND SKIN: INTACT ERYTHEMA FLUCTUANT INDURATION PRESENT WARM WOUND ASSESSMENT: RIGHT MEDIAL KNEE, SUSPECTED ETIOLOGY FOLICULITIS FURUNCLE. CLASSIFICATION: FULL THICKNESS SIZE: UNRUPTURED. WOUND BASE: RED, SWOLLEN, PAINFULL BUMP WITH PURULENT [place] C[facility]. EDGES: INDISTINCT EXUDATE: None ANDREY WOUND SKIN: INTACT ERYTHEMA FLUCTUANT INDURATION PRESENT WARM WOUND ASSESSMENT: RIGHT HOYT, SUSPECTED ETIOLOGY FOLICULITIS CARBUNCLE. CLASSIFICATION: FULL THICKNESS SIZE: CLUSTER MEASURES 1.5 CM X 5.5 CM X 0.1 CM WOUND BASE: 50% YELLOW AND BROWN NECROTIC TISSUE. 50% PINK MOIST TISSUE. EDGES: DIFFUSE ATTACHED EXUDATE: Sanguineous ANDREY WOUND SKIN: INTACT ERYTHEMA EDEMATOUS INDURATION PRESENT WARM WOUND ASSESSMENT: RIGHT LATERAL ANKLE, SUSPECTED ETIOLOGY FOLICULITIS FURUNCLE. CLASSIFICATION: FULL THICKNESS SIZE: 2 CM X 2 CM X 0.3 CM WOUND BASE: 100% PINK GRAUNULAR TISSUE. EDGES: DIFFUSE ATTACHED EXUDATE: Brown ANDREY WOUND SKIN: INTACT ERYTHEMA EDEMATOUS WARM WOUND ASSESSMENT: RIGHT LATERAL FOOT, SUSPECTED ETIOLOGY FOLICULITIS FURUNCLE. CLASSIFICATION: FULL THICKNESS SIZE: CLUSTER MEASURES 0.8 CM X 0.8 CM X 0.4 CM WOUND BASE: 100% YELLOW AND BROWN NECROTIC TISSUE. EDGES: DIFFUSE ATTACHED EXUDATE: Brown MODERATE AMOUNT OF ACTIVE DRAINAGE. ANDREY WOUND SKIN: INTACT ERYTHEMA EDEMATOUS WARM WOUND ASSESSMENT:RIGHT LATERAL LEG, SUSPECTED ETIOLOGY FOLICULITIS FURUNCLE. CLASSIFICATION: FULL THICKNESS SIZE: CLUSTER MEASURES 3 CM X 2.5 CM X 0.1 CM WOUND BASE: 100% YELLOW AND BLACK NECROTIC TISSUE. EDGES: INDISTINCT EXUDATE: Brown MODERATE AMOUNT OF ACTIVE DRAINAGE. ANDREY WOUND SKIN: INTACT ERYTHEMA FLUCTUANT INDURATION PRESENT WARM PICTURES OBTAINED, SEE PAPER CHART. PROCEDURE: VASHE SOAK APPLIED TO ALL WOUNDS AND ALLOWED TO SOAK. RIGHT MEDIAL KNEE LESION LEFT OPEN TO AIR. CAVILON APPLIED TO PERIWOUND SKIN AND ALLOWED TO DRY. MEPILEX SILVER FOAM APPLIED OVER ALL OTHER WOUND BASES AND SECURED WITH GAUZE ROLL AND ELASTIC BANDAGE. TREATMENT RECOMMENDATIONS: RIGHT MEDIAL KNEE WOUND: LEAVE OPEN TO AIR. IF IT RUPTURE APPLY SAME DRESSING OTHER WOUNDS. LEFT LATERAL ANKLE, RIGHT HOYT CLUSTER, RIGHT LATERAL ANKLE, RIGHT LATERAL FOOT AND RIGHT LATERAL LEG: APPLY VASHE SOAK TO WOUNDS AND ALLOW TO DWELL X10 MINUTES. APPLIED CAVILON TO PERIWOUND SKIN AND ALLOW TO DRY. COVER EACH WOUND BASE WITH MEPILEX SILVER FOAM AND SECURE WITH GAUZE ROLL AND ELASTIC BANDAGE. CHANGE DRESSINGS EVERY OTHER DAY AND NEEDED. RECOMMEND SURGICAL CONSULT FOR REMOVAL OF NECROTIC TISSUE. DR. HOWELL NOTIFIED. GOALS: HEAL. KEEP WOUND CLEAN, DECREASE TOPICAL BIOBURDEN AND CONTROL DRAINAGE.
--- NOTE | 2025-01-15 13:50 | NUR ---
LUNGS CLEAR, HRR.
[2025-01-15 14:14] LABS: GLOMERULAR FILTRATION RATE,EST 18.0 mL/min (>60); UREA NITROGEN 48.0 mg/dL (7-18)
--- NOTE | 2025-01-15 15:13 | NUR ---
NO URINE OUTPUT NOTED SINCE BOLUS COMPLETION. BLADDER SCAN SHOWES GREATER THAN 230 MLS. BMP RESULTS BACK. DR. HOWELL NOTIFIED OF LAB RESULTS AND PT POOR URINE OUTPUT.
[2025-01-15] MEDS ORDERED: FUROSEMIDE 40 MG/4 ML VIAL IV SCH (15:15)
--- NOTE | 2025-01-15 15:49 | NUR ---
PT RECIEVES LASIX ORDERED, SEE EMAREugene JOHNSON IN PLACE. PT RESTS IN BED, WATCHES TV, CALL LIGHT IN REACH.
--- NOTE | 2025-01-15 17:19 | NUR ---
NO OUTPUT NOTED IN PUREWICK. BLADDER SCAN REPEATED, 350 ML NOTED. INCONTENT EPISODE NOTED, URINE IN BREIF AND ON BED PAD. NEW PUREWICK PUT IN PLACE. PT SITS UP IN BED, EATS DINNER. CALL LIGHT IN REACH.
--- NOTE | 2025-01-15 17:25 | NUR ---
100 MLS OF CLEAR YELLOW URINE NOTED IN PUREWICK CONTAINER.
--- NOTE | 2025-01-15 18:29 | NUR ---
pt was bladder scanned twice. pt not urinating as much as she should be - informed nurse who informed drEugene orozco finally reporting feeling warm, has been cold most of the day.
[2025-01-15] MEDS ORDERED: PREGABALIN 75 MG CAP PO SCH (21:00)
--- NOTE | 2025-01-15 21:02 | NUR ---
Dr Coe in room assessing pt. dressing bilat LE removed and replaced. Silver dressing x3 R LE covered with kerlix and eddie wrap. Allevyn applied to R inner knee area as pt was scratching it. Dressing L leg silver dressing covered with kerliz and eddie wrap midcalf. very tender. Elevated with pillows above heart as per Dr Coe instructions. Pt repositioned in bed. Tolerating sips of fluids. increased flatus noted, no bm at this tiume, attends in place, purewick in place draining 175cc medium yellow urine. repositined in bed. Denies need fopr pain meds "too hard to swallow " stated, denies to have them crush or place in puding. Zyvox med was cut in half and pt still had trouble swallowing pill. Again declined to take it with pudin. Calm and cooperative 2 SL patent. Abd seems larger than this am, slightly firm non tender, HEA. no bm since 01/11. Aware of NPO status after midnight for am DI.
[2025-01-16] VITALS (10 sets, daily range): BP systolic 99–129; BP diastolic 48–67
--- NOTE | 2025-01-16 00:03 | NUR ---
Resting, eyes closed, no s/sx distress. repositions self in bed. legs elevated w pillows, NPO as per orders
--- NOTE | 2025-01-16 02:13 | NUR ---
Resting, eyes closed, no s/sx distress. awakens easily. Purewick changed, draining QS dark yellow urine, cooperative. NPO tolerating well, dressing to legs no changes elevated
[2025-01-16 03:46] LABS: IRON BINDING CAPACITY TOTAL 171 ug/dL (240-450); IRON,SERUM OR PLASMA 19 ug/dL (28-170); TRANSFERRIN SATURATION 11 %sat (20-50)
--- NOTE | 2025-01-16 04:21 | NUR ---
resting, eyes closed, repositions self in bed, on room air. NPO legs elevated w pillows, dressing legs intact
[2025-01-16 05:23] LABS: BASOPHILS 0.5 % (0.1-1.2); EOSINOPHILS 2.7 % (0.7-5.8); LYMPHOCYTES 10.2 % (19.3-51.7); MCH 29.8 PG (25.6-32.2); MCHC 32.2 g/dL (32.2-35.5); MCV 92.5 fL (79.4-94.8); MONOCYTES 8.5 % (4.7-12.5); NEUTROPHILS 77.1 % (34.0-71.1); RBC 2.65 M/uL (3.93-5.22)
[2025-01-16 05:39] LABS: ALT (SGPT) 6.0 U/L (14-59); AST (SGOT) 30.0 U/L (15-37); GLOMERULAR FILTRATION RATE,EST 19.0 mL/min (>60); PROTEIN, TOTAL 6.4 g/dL (6.4-8.2); UREA NITROGEN 49.0 mg/dL (7-18)
--- NOTE | 2025-01-16 05:48 | NUR ---
repositioned, temp 100.3 axillary. medicatd with tylenol per temp, covers removed. repositioned. purewick patent with qs urine. dressing r leg with serous drainage. elevated with pillows, decreased edema to feet.
--- NOTE | 2025-01-16 07:14 | NUR ---
VERBAL REPORT RECEIVED FROM LINCOLN WYLIE. PT RESTS IN BED WITH EYES CLOSED, RESP EVEN AND UNLABORED.
[2025-01-16] MEDS ORDERED: FUROSEMIDE 100 MG/10 ML VIAL IV SCH (09:00)
--- NOTE | 2025-01-16 10:45 | NUR ---
INTO SEE PATIENT. PATIENT WAITING TO HAVE SURGERY. SPOKE WITH HER POTENTIALLY ABOUT NEEDING SNF. PATIENT STATES "LETS SEE HOW I FEEL AFTER SURGERY BUT I REALLY WOULD MUCH RATHER GO HOME."
--- NOTE | 2025-01-16 12:42 | NUR ---
PT LEAVES UNIT VIA BED TO SURGICAL PROCEDURE.
[2025-01-16] MEDS ORDERED: fentaNYL citrate 100 MCG/2 ML VIAL ONE (12:57)
[2025-01-16] MEDS ORDERED: LIDOCAINE HCL 2% 5 ML SDV ONE (12:57)
[2025-01-16] MEDS ORDERED: HYDROmorphone HCL 1 MG/ML SYR IV PRN (13:45)
[2025-01-16] MEDS ORDERED: fentaNYL citrate 50 MCG/ML SDV IV PRN (13:45)
[2025-01-16] MEDS ORDERED: NALOXONE HCL 0.4 MG SYR IV PRN (13:45)
[2025-01-16] MEDS ORDERED: IBLOOD GLUCOSE TEST STRIP 1 EA TEST VI PRN (13:45)
[2025-01-16] MEDS ORDERED: ACETAMINOPHEN 1,000 MG/100 ML VIAL ONE (14:11)
--- NOTE | 2025-01-16 14:30 | NUR ---
01/16/25 1430 Tory Bedoya 1425: PT ARRIVES TO PACU REACTIVE, WITH ORAL AIRWAY IN PLACE. REPORT RECEIEVED FROM ANESTHESIOLOGISTS' ASSISTANT AND MECHANICAL RESEARCH ENGINEER.
[2025-01-16] MEDS ORDERED: fentaNYL citrate 50 MCG/ML SDV ONE (14:41)
--- NOTE | 2025-01-16 15:22 | NUR ---
PT RETURNS FROM SURGICAL WOUND DEBRIDEMENT AT 1508, ESCORTED BY KRISTOPHER Rivera RN, VIA BED, VERBAL REPORT RECEIVED. VSS. PT RESTS WITH EYES CLOSED, RESP EVEN AND UNLABORED, CPOX IN PLACE, PT SATS 96% ON RA. ROUSES EASILY TO VOICE. ANSWERS QUESTIONS, GOES BACK TO RESTING WITH EYES CLOSED. SCDS IN PLACE TO FEET. WOUND VAC IN PLACE TO LEFT LATERAL LEG WOUND. SUCTION SUSTAINED AT 125 MM HG, DRESSING INTACT. DRESSING TO RLE IS C/D/I. CMS INTACT TO PT BASELINE NAUROPATHY. HRR, LUNGS CLEAR. NO REPORTS OF PAIN OR NAUSEA AT THIS TIME. PT RE-ORIENTED TO ROOM. NO REQUESTS AT THIS TIME.
--- NOTE | 2025-01-16 16:08 | NUR ---
PT AWAKE AND ALERT, WATCHES TV, VSS. SUCTION TO LLE MAINTAINES AT 125 MM HG. DRESSINGS TO BLE INTACT. NO REPORTS OF PAIN OR NAUSEA AT THIS TIME.
--- NOTE | 2025-01-16 17:32 | NUR ---
PT SITS UP IN BED, AWAKE AND ALERT, EATS DINNER, WATCHES TV, TALKS ON CELL PHONE. SATS 99% ON RA. NO REPORTS OF PAIN OR NAUSEA AT THIS TIME.
[2025-01-16] MEDS ORDERED: MAGNESIUM CITRATE 300 ML BTL PO ONE (18:15)
--- NOTE | 2025-01-16 23:29 | NUR ---
REPOSITIONED, ON ROOM AIR, LEGS ELEVATED PER ORDERS, DRESSING IN PLACE WOUND VC L LEG
[2025-01-17] VITALS (12 sets, daily range): BP systolic 99–135; BP diastolic 54–72
--- NOTE | 2025-01-17 00:38 | NUR ---
c/o 10/30 bilat leg pain, medicated with oxycodone 5mg po.
--- NOTE | 2025-01-17 01:37 | NUR ---
RESTING, EYES CLOSED, ON ROOM AIR, LEGS ELEVATED, PUREWICK IN PLACE
--- NOTE | 2025-01-17 03:26 | NUR ---
AWAKENS EASILY, DENIES C/O PAIN AT THIS TIME, ON ROOM AIR, POST OP CPOX ON AT BEDSIDE. DRESSING TO R LEG WITH OLD DRAINAGE, WOUND VAC TO L LOWER LEG IN PLACE, FOOT SCDS IN PLACE BILAT, EDEMA TO L ANKLE AND FOOT NO CHANGES, ELEVATED WITH PILLOWS. HAS TOLERATED WELL,
[2025-01-17 05:31] LABS: BASOPHILS 0.4 % (0.1-1.2); EOSINOPHILS 3.7 % (0.7-5.8); LYMPHOCYTES 9.0 % (19.3-51.7); MCH 29.2 PG (25.6-32.2); MCHC 31.3 g/dL (32.2-35.5); MCV 93.4 fL (79.4-94.8); MONOCYTES 5.3 % (4.7-12.5); NEUTROPHILS 80.9 % (34.0-71.1); RBC 2.43 M/uL (3.93-5.22)
[2025-01-17 05:46] LABS: ALT (SGPT) 10.0 U/L (14-59); AST (SGOT) 31.0 U/L (15-37); GLOMERULAR FILTRATION RATE,EST 19.0 mL/min (>60); PROTEIN, TOTAL 6.2 g/dL (6.4-8.2); UREA NITROGEN 52.0 mg/dL (7-18)
--- NOTE | 2025-01-17 05:59 | NUR ---
Resting, awakens easily, helpful with repositioning and turning. on room air, post op cpox on at bedside. abd more distended, endy, no results from mag citrate given earlier yesterday. Dulculax supp given, low laying hard pebbly bm felt during insertion. Large external hemorroids present. all cares and procedures explained, Pt stated understanding purewick in place, changed. Legs elevated with pillows. wound vac to L lower leg, edema no changes. dressing with old drainage R leg. foot scds in place. Moving R leg more than yesterday. tender L leg still
--- NOTE | 2025-01-17 07:20 | NUR ---
REPORT RECIEVED FROM LINCOLN WYLIE. PATIENT UP TO BEDSIDE COMMODE AND REQUESTING TIME. CALL LIGHT AND PERSONAL BELONGINGS ARE WITHIN REACH.
--- NOTE | 2025-01-17 08:45 | NUR ---
PATIENT TRANSFERRED FROM COMMODE TO CHAIR VIA [address] [place] [address] ASSIST. PATIENT TOLERATED OKAY, BUT DID BECOME WEAK AND STAFF HAD TO PLACE CHAIR DIRECTLY BEHIND PATIENT. PATIENT SITTING UP IN HER CHAIR AND EATING BREAKFAST. PATIENT MEDICATED PER EMAR. FRESH ICE WATER AND ICE PROVIDED. PATIENT IV FLUSHED WITH 10ML OF NS, DRESSING IS INTACT. PATIENT WITHOUT FURTHER NEEDS FROM THIS RN AT THIS TIME. CALL LIGHT AND PERSONAL BELONGINGS ARE WITHIN REACH. VITAL SIGNS TAKEN AND ARE STABLE.
[2025-01-17] MEDS ORDERED: SENNOSIDES/DOCUSATE 1 EA TAB PO SCH (09:00)
[2025-01-17] MEDS ORDERED: POLYETHYLENE GLYCOL 3350 1 PACKET PO SCH (09:00)
[2025-01-17] MEDS ORDERED: FUROSEMIDE 100 MG/10 ML VIAL IV SCH (09:00)
[2025-01-17] MEDS ORDERED: DAPTOmycin 500 MG/10 ML VIAL IV SCH (09:29)
--- NOTE | 2025-01-17 09:36 | NUR ---
ALERT AND ORIENTED, SITTING IN RECLINER. PATIENT HAS A WOUND VAC. DISCUSSED NEED FOR SNF PLACEMENT. STATES SHE DOES NOT WANT TO LEAVE [facility], BUT SHE DOES NOT WANT TO GO TO [place]. INFORMED HER [facility] IS THE ONLY [facility] FACILITY IN [facility], REFERRALS CAN BE SENT OUT OF [facility] IF SHE PREFERS, CHOICES DISCUSSED. PATIENT STATES SHE WILL GO TO [facility] IF THEY ACCEPT HER BECAUSE SHE DOES NOT WANT TO LEAVE [facility] DUE TO HER DAUGHTER'S ABILITY TO VISIT.
--- NOTE | 2025-01-17 09:40 | NUR ---
PATIENT UP TO COMMODE. CALL LIGHT AND PERSONAL BELONGINGS ARE WITHIN REACH.
--- NOTE | 2025-01-17 10:51 | NUR ---
REFERRAL FOR SNF FAXED TO [facility].
--- NOTE | 2025-01-17 10:57 | NUR ---
PATIENT MEDICATED PER EMAR. PATIENT ASSESSMENT COMPLETED. PATIENT ROOM STRAIGHTENED UP. PATIENT REPOSITIONED TO COMFORT. PATIENT WITHOUT FURTHER NEEDS FROM THIS RN AT THIS TIME. CALL LIGHT AND PERSONAL BELONGINGS ARE WITHIN REACH. PATIENT IS 98% ON ROOM AIR, CPOX AT BEDSIDE.
--- NOTE | 2025-01-17 11:58 | NUR ---
PATIENT RESTING IN BED AND DENIES ANY PAIN. PATIENT MEDICATED PER EMAR. PATIENT DENIES WANTING TO GET UP TO HER CHAIR FOR LUNCH. PATIENT WITHOUT FURTHER NEEDS AT THIS TIME. CALL LIGHT AND PERSONAL BELONGINGS ARE WITHIN REACH.
--- NOTE | 2025-01-17 12:50 | NUR ---
PATIENT RESTING IN BED WITH HER EYES CLOSED. EVEN AND UNLABORED RESPIRATIONS NOTED. CALL LIGHT AND PERSONAL BELONGINGS ARE WITHIN REACH.
--- NOTE | 2025-01-17 13:45 | NUR ---
PATIENT RESTING IN BED WATCHING TV AND DENIES ANY NEEDS AT THIS TIME. CALL LIGHT AND PERSONAL BELONGINGS ARE WITHIN REACH.
--- NOTE | 2025-01-17 13:48 | OR ---
[facility] [address] [place], [place] [address] Signed DATE OF OPERATION: 01/16/2025 SURGEON: Jasmina Lorenzo MD PREOPERATIVE DIAGNOSES: 1. Bilateral lower extremity cellulitis (improving). 2. Bilateral lower extremity necrotic nodules with undrained purulence. POSTOPERATIVE DIAGNOSES: 1. Left lateral lower extremity with necrosis and associated subcutaneous abscess, 6.5 x 5.5 x 2.0 cm. 2. Right multiple areas of subcutaneous abscess with necrotic overlying skin. 3. Additional posteromedial necrotic skin with underlying subcutaneous abscess, 4 x 5 cm. PROCEDURES: 1. Exam under anesthesia. 2. Left lateral lower leg debridement of skin, subcutaneous tissue 6 x 5.5 x 2.0 cm as well as associated subcutaneous abscess with application of wound VAC device. 3. Right incision and drainage of multiple posterior and anterolateral skin abscesses with application of vessel loops. 4. Excision of right 5 cm x 4 cm necrotic skin with underlying drainage of abscess. ANESTHESIA: Local with monitored anesthesia care, Chicho Camacho CRNA. INDICATION: This 70-year-old white woman with diabetes and obesity, presents to the hospital and admitted on January 11, 2025, with bilateral significant right and left lower extremity cellulitis. Much of her cellulitis has improved with antibiotic therapy and leg elevation, but she now has revealing some necrotic skin overlying what appears to be undrained purulent areas particularly in the left lateral aspect and right posterior and anterolateral aspect. Given these findings, I have recommended exam under the anesthesia with incision, drainage and debridement and other indicated procedures. Additionally, the patient has very misshapen and exceedingly elongated toenails for which nail resection appropriately would be undertaken while under anesthesia. The risk of bleeding, infection, and so forth were reviewed with her. She understands and wished to proceed. FINDINGS: A dominant lesion in the lateral aspect of the left lower extremity somewhat above the Electronically Signed By: JASMINA LORENZO MD 01/17/25 1348 PATIENT NAME: KAREN MADRIGAL OPERATIVE REPORT DATE OF : 59 REPORT #: [id number] PHYSICIAN: JASMINA LORENZO MD PCP: LAISHA SRIVASTAVA DO REPORT IS CONFIDENTIAL AND NOT TO BE RELEASED WITHOUT AUTHORIZATION [facility] [address] [place], [place] [address] Signed ankle showed necrotic skin and underlying undrained thick purulent material. Debridement included skin, fat, and the mucoid and mucopurulent tissue directly over the muscle compartment. The lesion measured 6 x 5.5 x 2 cm. Ultimately, wound VAC was applied to that area after complete drainage and irrigation. The right side had multiple small subcutaneous abscesses and nodules, some of them in continuity and others not. One dominant lesion was 4 x 5 cm, which showed necrotic skin in the underlying abscess, which was excised full thickness as was the left side. This area did not require a wound VAC in particular because there was no undermining or connection to other lesions. Several other lesions of the right lower extremity, however, were excised with an elliptical excision and removal of purulent material in the subcutaneous space, several were in continuity for which drainage, debridement, and application of yellow vessel loops was performed to allow for drainage. The wound VAC was applied to the left leg, the other simply gauze dressing. DESCRIPTION OF PROCEDURE: The patient was brought to the operating room, placed in supine position, and given intravenous sedation dominantly. The lower extremities were prepared with a Betadine solution and draped sterilely. Attention was turned to the left lower extremity first. In the lateral aspect was a boggy lesion with overlying necrotic skin. This was excised in elliptical configuration, which reveals a considerable amount of undrained purulence, which was milked from the leg from the subcutaneous space. Debridement was undertaken with sharp dissection. Specimen passed for products of debridement. After irrigation was complete, the wound was packed. Attention was turned to the right leg. A similar such lesion was noted in the posterior aspect, which was excised also revealing necrotic skin and subcutaneous tissue as well as purulence for which debridement was similarly undertaken, though there was not as much undermining. A number of small nodules subcutaneously noted in the posterior calf on the right side were incised and necrotic material and purulence drained. Some were in continuity and were made to be drained by yellow vessel loops applied in continuity. Several other such lesions were identified on the right side, similarly drained and debrided. One was directly above the ankle. Irrigation was undertaken in all the areas. A wound VAC dressing was applied to the lesion in the left lateral calf area, applied 220 mmHg continuous suction. The right-sided lesions were not as deeper as extensive and were packed with gauze encircled with Kerlix and ultimately an Spenser wrap for further ongoing therapy. She was ultimately also noted to have deformed and impressively outgrown toenails in particular, but other nails as well. These were trimmed to the appropriate length and configuration with a sharp rongeur device. She was ultimately allowed to emerge from sedation, taken to the recovery room in good condition. Blood loss was 50 mL or less. Electronically Signed By: JASMINA LORENZO MD 01/17/25 3358 PATIENT NAME: KAREN MADRIGAL OPERATIVE REPORT DATE OF : 59 REPORT #: [id number] PHYSICIAN: JASMINA LORENZO MD PCP: LAISHA SRIVASTAVA DO REPORT IS CONFIDENTIAL AND NOT TO BE RELEASED WITHOUT AUTHORIZATION [address] [place], [place] [address] Signed MD RENETTA Santiago/SUZANNE /[id number] cc: Dr. Arthur Pearl, Hospitalist Dr. Aram Srivastava DO Copies: LAISHA SRIVASTAVA DO ~ Electronically Signed By: JASMINA LORENZO MD 01/17/25 1348 PATIENT NAME: KAREN MADRIGAL OPERATIVE REPORT DATE OF : 59 REPORT #: [id number] PHYSICIAN: JASMINA LORENZO MD PCP: LAISHA SRIVASTAVA DO REPORT IS CONFIDENTIAL AND NOT TO BE RELEASED WITHOUT AUTHORIZATION
--- NOTE | 2025-01-17 13:48 | CONS ---
[facility] [address] [place], [place] [address] Signed DATE OF CONSULTATION: 01/15/2025 REQUESTING PHYSICIAN: Dr. Pearl. PROBLEM: Bilateral lower extremity cellulitis with questionable areas of necrosis. HISTORY: This 70-year-old white woman has diabetes, though she has had diabetes control in the past down to hemoglobin A1c of 5.5, actually going off her medications at one point. She was admitted recently on January 11, 2025, having presented to the emergency room and evaluated by Dr. Willingham, presenting to the emergency room by ambulance with swelling and redness in her lower extremities. She has had dependent edema for the preceding 2 weeks, gradually worsening with skin breaking a few days prior to recent evaluation. She does have prior cellulitis history of lower extremities related to cat scratches when she was cat sitting. The patient had been admitted to the hospital requiring surgical debridement. Cultures had grown pansensitive Staph aureus. The patient was admitted to the service of Dr. Luna who did have her do leg elevation, IV antibiotics and so on. Care was assumed by Dr. Pearl, hospitalist, in the past 48 hours who requests consultation to assess whether or not debridement is needed. PAST MEDICAL HISTORY: Includes: 1. Not only diabetes but dyslipidemia. 2. Hypertension. 3. She has had three vessel coronary artery bypass in the past year or so. MEDICATIONS: Current medicines at home include: 1. Atorvastatin. 2. Vitamin D3. 3. Vitamin B12. 4. Mesalamine 2 tabs daily. 5. Albuterol inhaler. 6. Fluticasone inhaler. 7. Carvedilol. 8. Metoprolol. 9. Nitroglycerin sublingual as needed. 10. Vitamin B12. 11. Vitamin D3. 12. Oliver 81 mg aspirin. 13. Plavix 75 mg daily. Electronically Signed By: JASMINA LORENZO MD 01/17/25 1348 PATIENT NAME: KAREN MADRIGAL CONSULTATION DATE OF : 59 REPORT #: [id number] PHYSICIAN: JASMINA LORENZO MD PCP: LAISHA SRIVASTAVA DO REPORT IS CONFIDENTIAL AND NOT TO BE RELEASED WITHOUT AUTHORIZATION [facility] [address] [place], [place] [address] Signed REVIEW OF SYSTEMS: She denies any shortness of breath or chest pain. She does have pain in her lower extremities still but much improved since the time of admission. PHYSICAL EXAMINATION: GENERAL: This is an obese white woman who looks to be comfortable and without sign of systemic toxicity. VITAL SIGNS: At this time show a temperature of 98.5, pulse of 91, blood pressure 141/71, O2 saturation 94% on room air. CHEST: Shows normal respiratory excursion. She has no tachypnea. HEART: Regular. ABDOMEN: Obese but soft. There is no ascites. EXTREMITIES: Moderately elevated but not higher than her heart. Bandages were removed which included an Spenser wrap and Kerlix and a silver sponge-type dressing. On the right side, her anterior nodules with subcutaneous softness suggestive of possible necrosis but without charley gangrene. On the left side, there are areas, particularly in the lateral aspect, which showed tissue necrosis. It is clear that she has less edema than at presentation. She does not have generalized erythematous cellulitis. ASSESSMENT: As noted by Dr. Pearl, debridement would not be appropriate in the lower extremities given the findings at this time. She has apparently had debridement associated with her cellulitic episodes in the past. For now, we will decrease edema more by elevating her legs higher than heart, and I will reassess tomorrow with a plan for debridement possibly tomorrow or Thursday. Continued IV antibiotics would be appropriate. MD RENETTA Santiago/RADHAL /[id number] cc: Dr. Dae Srivastava DO Electronically Signed By: JASMINA LORENZO MD 01/17/25 1348 PATIENT NAME: KAREN MADRIGAL CONSULTATION DATE OF : 59 REPORT #: [id number] PHYSICIAN: JASMINA LORENZO MD PCP: LAISHA SRIVASTAVA DO REPORT IS CONFIDENTIAL AND NOT TO BE RELEASED WITHOUT AUTHORIZATION [facility] [address] [place] [id number] Cheryl Wilkinson [facility] Copies: LAISHA SRIVASTAVA DO ~ Electronically Signed By: JASMINA LORENZO MD 01/17/25 1348 PATIENT NAME: SHAHABKAREN CONSULTATION DATE OF : 59 REPORT #: [id number] PHYSICIAN: JASMINA LORENZO MD PCP: LAISHA SRIVASTAVA DO REPORT IS CONFIDENTIAL AND NOT TO BE RELEASED WITHOUT AUTHORIZATION
--- NOTE | 2025-01-17 14:20 | NUR ---
PATIENT REQUESTING TO GET UP TO BEDSIDE COMMODE AT THIS TIME. THIS RN AND HECTOR CHANDRA IN ROOM ASSISTING PATIENT UP TO BEDSIDE COMMODE. PATIENT TOLERATED WELL AND IS REQUESTING "A FEW MINUTES HERE". CALL LIGHT AND PERSONAL BELONGINGS ARE WITHIN REACH.
--- NOTE | 2025-01-17 14:35 | NUR ---
PT IN ROOM WORKING WITH PATIENT.
--- NOTE | 2025-01-17 15:50 | NUR ---
PATIENT RESTING IN HER CHAIR AND REPORTS LEFT HIP PAIN AND REQUESTING TO GET BACK INTO BED. PATIENT EDUCATED ON BENEFIT OF SITTING UP IN HER CHAIR. HEAT PACK AND PILLOW OFFERED, PATIENT ACCEPTED.
--- NOTE | 2025-01-17 16:10 | NUR ---
PATIENT MEDICATED PER EMAR. PILLOW AND HEAT PACK PROVIDED TO PATIENT'S LEFT HIP. PATIENT STATES SHE WILL "TRY THIS FOR AWHILE". FRESH ICE WATER PROVIDED. PATIENT WITHOUT FURTHER NEEDS AT THIS TIME. CALL LIGHT AND PERSONAL BELONGINGS ARE WITHIN REACH.
--- NOTE | 2025-01-17 18:20 | NUR ---
PATIENT TRANSFERED BACK TO BED VIA [address] [place] [address] ASSIST WITH THE FRONT WHEEL WALKER. WOUND CARE COMPLETED PER DR LORENZO'S NURSE NOTIFY. PATIENT TOLERATED WELL. RIGHT LEG/WOUNDS CLEANSED WITH VASHE, NEW GAUZE APPLIED TO SURGICAL SITES, LEG WRAPPER WITH CURLEX X2 AND ONE ЕЛЕНА WRAP. PATIENT REQUESTING TO LEAVE SOCKS OFF AT THIS TIME. ANDREY CARE COMPLETED. NEW PUREWICK AND BRIEF APPLIED. PATIENT WITHOUT FURTHER NEEDS AT THIS TIME. CALL LIGHT AND PERSONAL BELONGINGS ARE WITHIN REACH.
--- NOTE | 2025-01-17 19:15 | NUR ---
REPORT RECEIVED FROM LINCOLN TIM. pt RESTING IN BED AWAKE. DENIES NEEDS. LEGS ELEVATED ON PILLOW AT THIS TIME. WOUND VAC ON. CALL LIGHT IN REACH.
[2025-01-17] MEDS ORDERED: INSULIN GLARGINE-YFGN 100 UNIT/ML ML SUB-Q SCH (21:00)
--- NOTE | 2025-01-17 22:00 | NUR ---
pt DROWSY, AWAKENS TO VOICE. ASSESSMENT COMPLETE. DENIES PAIN AT THIS TIME. ICE WATER REFILLED. WOUND VAC IN PLACE. LEGS ELEVATED ON PILLOWS. CALL LIGHT AND PERSONAL SUPPLIES WITHIN REACH.
--- NOTE | 2025-01-17 23:31 | NUR ---
CHECKED ON pt. RESTING IN BED WITH EYES CLOSED. BREATHING EQUAL AND UNLABORED. CALL LIGHT IN REACH.
[2025-01-18] VITALS (8 sets, daily range): BP systolic 110–133; BP diastolic 45–94
--- NOTE | 2025-01-18 01:00 | NUR ---
CHECKED ON pt. RESTING IN BED WITH EYES CLOSED. NO DISTRESS NOTED. CPOX ON, SPO2 WNL ON RA.
--- NOTE | 2025-01-18 03:35 | NUR ---
ROUNDED ON Pt. RESTING IN BED WITH EYES CLOSED, SPO2 WNL ON RA. NO DISTRESS NOTED.
[2025-01-18 05:47] LABS: BASOPHILS 0.4 % (0.1-1.2); EOSINOPHILS 4.0 % (0.7-5.8); LYMPHOCYTES 14.8 % (19.3-51.7); MCH 28.8 PG (25.6-32.2); MCHC 30.8 g/dL (32.2-35.5); MCV 93.4 fL (79.4-94.8); MONOCYTES 8.1 % (4.7-12.5); NEUTROPHILS 71.7 % (34.0-71.1); RBC 2.43 M/uL (3.93-5.22)
--- NOTE | 2025-01-18 06:03 | NUR ---
pt AWAKE AFTER LAB DRAW. VSS. RIGHT MEDIAL KNEE SCAB/HEMATOMA DRAINED ON CHUX, MILKY BLOOD SUBSTANCE. ALLEVYN IN PLACE. NEW CHUX UNDER LEGS. WOUND VAC WITH 75 MLS SANGUINOUS DRAINAGE. LEGS ELEVATED ABOVE HEART, REPOSITIONED ON PILLOWS. NEW PUREWICK PLACED. DRESSING ON RLE DRY. CALL LIGHT IN REACH.
[2025-01-18 06:04] LABS: ALT (SGPT) 8.0 U/L (14-59); AST (SGOT) 26.0 U/L (15-37); GLOMERULAR FILTRATION RATE,EST 14.0 mL/min (>60); PROTEIN, TOTAL 6.3 g/dL (6.4-8.2); UREA NITROGEN 62.0 mg/dL (7-18)
--- NOTE | 2025-01-18 07:26 | NUR ---
REPORT RECIEVED FROM LINCOLN REID. PATIENT RESTING IN BED ON HER BACK WITH HER EYES CLOSED. EVEN AND UNLABORED RESPIRATIONS NOTED. CALL LIGHT AND PERSONAL BELONGINGS ARE WITHIN REACH. PATIENT IS 93% ON ROOM AIR. WHITE BOARD UPDATED.
--- NOTE | 2025-01-18 07:59 | NUR ---
PATIENT LAYING IN BED. PATIENT PREFORMED ORAL CARE AND WAS PROVIDED WITH A WARM WASHCLOTH. PATIENTS CALL LIGHT IS WITHIN REACH AND NO FURTHER NEEDS AT THIS TIME.
[2025-01-18] MEDS ORDERED: ALBUMIN HUMAN 25% 100 ML BTL IV ONE ×2 (08:15→13:45)
--- NOTE | 2025-01-18 08:28 | NUR ---
PATIENT MEDICATED PER EMAR. PATIENT SITTING UP IN BED EATING BREAKFAST AND DENIES WANTING TO GET UP TO HER CHAIR STATING "CAN I HAVE A BREAK TODAY AND JUST STAY IN BED". EDUCATED PATIENT ON THE IMPORTANCE OF GETTING UP AND OUT OF BED. PATIENT STILL REQUESTING TO STAY IN BED. LET PATIENT KNOW WE WILL TRY FOR LUNCH, PATIENT AGREES. VITAL SIGNS TAKEN AND ARE STABLE. CALL LIGHT AND PERSONAL BELONGINGS ARE WITHIN REACH.
--- NOTE | 2025-01-18 08:30 | NUR ---
PATIENT'S CREATININE NOTED TO BE 3.33. DR HOWELL NOTIFIED DUE TO ORDER FOR LASIX. WITH VERBAL ORDER TO HOLD LASIX UNTIL BNP LAB RESULTS.
--- NOTE | 2025-01-18 09:12 | NUR ---
ALERT AND ORIENTED IN BED. STATES SHE IS STILL AGREEABLE TO SNF DC TO [facility] IF SHE IS ACCEPTED TO THEIR FACILITY. INFORMED HER STAFF WILL UPDATE HER REGARDING PLAN WHEN [facility] PROVIDES WHETHER OR NOT THEY CAN ACCEPT HER. NO OTHER CM NEEDS AT THIS TIME.
--- NOTE | 2025-01-18 10:12 | NUR ---
PATIENT RESTING IN BED WITH HER EYES CLOSED. EVEN AND UNLABORED RESPIRATIONS ARE NOTED. CALL LIGHT AND PERSONAL BELONGINGS ARE WITHIN REACH.
--- NOTE | 2025-01-18 10:29 | PATH ---
[facility] [address] [facility] [place], [place] [address] Signed SPECIMEN(S): A DEBRIDEMENT, LEFT LOWER LEG SPECIMEN(S): B DEBRIDEMENT, RIGHT LOWER LEG SPECIMEN SOURCE: A. DEBRIDEMENT, LEFT LOWER LEG B. DEBRIDEMENT, RIGHT LOWER LEG CLINICAL HISTORY: Bilateral lower extremity cellulitis with questionable areas of necrosis FINAL PATHOLOGIC DIAGNOSIS: A. Left lower leg, debridement: - Skin and subcutaneous tissue with extensive acute suppurative inflammation and necrosis. B. Right lower leg, debridement: - Skin and subcutaneous tissue with extensive acute suppurative inflammation and necrosis. DWS:clv MICROSCOPIC EXAMINATION: Histologic sections of all submitted blocks are examined by light microscopy. These findings, together with the gross examination, support the pathologic diagnosis. GROSS DESCRIPTION: A. The specimen, labeled and designated "Bon, C., products of debridement, left lower leg per requisition," is received in formalin and consists of a 3.7 x 2.5 x 0.5 cm aggregate of funk-brown tissue fragments with portions of funk skin. There are areas of hemorrhage but no focal necrosis. Operations Manager Station sections are submitted in cassette A1. B. The specimen, labeled and designated "Bonus, C., right lower leg debridement per requisition," is received in formalin and consists of a 2.1 x 1.5 x 0.4 cm aggregate of funk-brown tissue fragments with portions of funk skin. There are areas of necrosis but no focal hemorrhage. The specimen is entirely submitted in cassette B1. AA (under the direct supervision of a pathologist) The Gross Description was prepared using a voice recognition system. The report was reviewed for accuracy; however, sound-alike word errors, addition and/or deletions may occur. If there is any question about this report, please contact Client Services. PATIENT NAME: KAREN MADRIGAL PATHOLOGY DATE OF : 59 REPORT #: [id number] PHYSICIAN: [facility] PCP: LAISHA SRIVASTAVA DO REPORT IS CONFIDENTIAL AND NOT TO BE RELEASED WITHOUT AUTHORIZATION [facility] [address] [place], [place] [address] Signed PERFORMING LABORATORY: Technical component was performed by [facility], [address] [place] [id number] (CLIA# [id number]). [facility], [address] [place] [id number] (CLIA#: [id number]). Diagnostician: Herminio Gomez MD Pathologist Electronically Signed 01/18/2025 Copies: ~ PATIENT NAME: KAREN MADRIGAL PATHOLOGY DATE OF : 59 REPORT #: [id number] PHYSICIAN: [facility] PCP: LAISHA SRIVASTAVA DO REPORT IS CONFIDENTIAL AND NOT TO BE RELEASED WITHOUT AUTHORIZATION
--- NOTE | 2025-01-18 10:45 | NUR ---
DR HOWELL WITH VERBAL ORDER TO PLACE GODDARD FOR STRICT I/O'S AND TO DC PIPPA.
[2025-01-18] MEDS ORDERED: LIDOCAINE 2% VISCOUS 6 ML SYR TOP ONE (11:00)
[2025-01-18 11:31] LABS: GLOMERULAR FILTRATION RATE,EST 14.0 mL/min (>60); UREA NITROGEN 64.0 mg/dL (7-18)
--- NOTE | 2025-01-18 11:52 | NUR ---
LINCOLN WILSON AND LINCOLN MACKEY AT BEDSIDE INSERTING PATIENT GODDARD
--- NOTE | 2025-01-18 11:58 | NUR ---
Indwelling mix placed per provider order. Patient reports she has allergy to latex. Inserted 16fr latex free mix catheter using sterile technique, immediate return of clear yellow urine noted. Patient tolerated well.
--- NOTE | 2025-01-18 12:17 | NUR ---
PATIENT MEDICATED PER EMAR. PT IN ROOM WORKING WITH PATIENT. PATIENT IS WITHOUT ANY NEEDS FROM THIS RN AT THIS TIME. CALL LIGHT AND PERSONAL BELONGINGS ARE WITHIN REACH. PATIENT'S DAUGHTER AT BEDSIDE.
--- NOTE | 2025-01-18 13:15 | NUR ---
TECHNICAL APPLICATIONS SPECIALIST IN ROOM ASSISTNG PATIENT.
--- NOTE | 2025-01-18 14:05 | NUR ---
PATIENT RESTING IN BED WITH HER EYES CLOSED. EVEN AND UNLABORED RESPIRATIONS NOTED. CALL LIGHT AND PERSONAL BELONGINGS ARE WITHIN REACH.
--- NOTE | 2025-01-18 15:30 | NUR ---
PATIENT IV ALARMING. IN ROOM TO ASSESS. PATIENT IV OCCLUDED. NO SIGNS OF INFILTRATION. PATIENT EDUCATED TO KEEP ARM STRAIGHT AND NOT BEND AT ELBOW WHICH IS CAUSING OCCLUSION. IV RESTARTED.
--- NOTE | 2025-01-18 16:55 | NUR ---
STAFF IN ROOM OBTAINING GLUCOSE CHECK
--- NOTE | 2025-01-18 17:15 | NUR ---
PATIENT MEDICATED PER EMAR. PATIENT SITTING UP IN BED EATING DINNER. PATIENT WITHOUT FURTHER NEEDS AT THIS TIME. CALL LIGHT AND PERSONAL BELONGINGS ARE WITHIN REACH.
--- NOTE | 2025-01-18 17:40 | NUR ---
PATIENT MEDICATED PER EMAR FOR 8/10 PAIN IN HER LEGS. PATIENT IV FLUSHED WITH 10ML OF NS, DRESSING IS INTACT. IV IS SALINE LOCKED. PATIENT WITHOUT FURTHER NEEDS AT THIS TIME. CALL LIGHT AND PERSONAL BELONGINGS ARE WITHIN REACH.
--- NOTE | 2025-01-18 19:10 | NUR ---
RECEIVED REPORT FROM LINCOLN TIM. PATIENT RESTING IN BED WITH EYES CLOSED, RESPIRATIONS EVEN AND UNLABORED. NO NEEDS IDENTIFIED AT THIS TIME. CALL LIGHT AND BELONGINGS IN REACH.
--- NOTE | 2025-01-18 20:24 | NUR ---
SCHEDULED MEDICATIONS GIVEN PER ORDERS. ASSESSMENT COMPLETED. PATIENT LAYING IN BED AWAKE AND ALERT, ABLE TO ANSWER QUESTIONS APPROPRIATLY. PATIENT IV SALINE LOCKED. WOUND VAC IN PLACE AND SUCITON IS ACTIVE. WOUND DRESSINGS ARE CLEAN, DRY, AND INTACT. VS AND I&O'S COMPELTED AND DOCUMENTED. PATIENT REPOSITIONED IN BED. PATIENT DENIES ANY PAIN. NO NEEDS IDENTIFIED AT THIS TIME. CALL LIGHT AND BELONGINGS IN REACH.
--- NOTE | 2025-01-18 22:30 | NUR ---
ROUNDED ON PATIENT, REFRESHED ICE WATER. PATIENT AWAKE AND ALERT WATCHING TV. LEGS ELEVATD WITH PILLOWS. WOUND VAC ON AND SUCTIONING. NO NEEDS IDENTIFIED AT THIS TIME. PATIENT DENIES PAIN. CALL LIGHT AND BELONGINGS IN REACH.
--- NOTE | 2025-01-18 23:21 | NUR ---
PATIENT RECIEVED PRN PAIN MEDICATIONS FOR DISCOMFORT PRIOR TO WOUND CARE. NO OTHER NEEDS AT THIS TIME. CALL LIGHT IN REACH.
[2025-01-19] VITALS (10 sets, daily range): BP systolic 117–237; BP diastolic 51–69
--- NOTE | 2025-01-19 00:40 | NUR ---
DRESSING CHANGE OF RLE COMPLETED PER NURSE NOTIFY ORDER WITH WM SLOAN AND ЕЛЕНА BANDAGE WRAP. CLEANED WITH SALINE AND WOUND CLEANSER PRIOR TO NEW DRESSING APPLICATION. DRAINAGE SEROSANGIOUNOUS, LIGHT. PATIENT TOLERATED WELL. SHE DENIES FURTHER NEEDS, CALL LIGHT IN REACH
--- NOTE | 2025-01-19 01:25 | NUR ---
ROUNDED ON PATIENT, AWAKE AND ALERT WATCHING TV. PATIENT STATES A 2/10 PAIN FOR REASSESSMENT. NO NEEDS IDENTIFIED AT THIS TIME. CALL LIGHT IN REACH.
--- NOTE | 2025-01-19 01:53 | NUR ---
EMPTIED PATIENT'S GODDARD. URINE CLEAR, YELLOW. PATIENT RESTING IN BED WITH EYES CLOSED, RESPIRATIONS EVEN AND UNLABORED, NO SIGNS OF DISTRESS. CALL LIGHT IN REACH.
--- NOTE | 2025-01-19 03:02 | NUR ---
ROUNDED ON PATIENT, PATIENT RESTING WITH EYES CLOSED, RESPIRATIONS EVEN AND UNLABORED. NO NEEDS IDENTIFIED, CALL LIGHT IN REACH
--- NOTE | 2025-01-19 05:00 | NUR ---
VS AND I&O'S COMPLETED AND DOCUMENTED. ASSESSMENT COMPLETED. PATIENT TEMP OF 100/0, COLD WASHCLOTH PLACED ON FOREHEAD, BLANKET REMOVED SHEET ONLY. PATIENT STATED SHE WAS FEELING "SWEATY" AND REQUESTED TYLENOL. TYLENOL GIVEN PER ORDERS. RIGHT LEG ELEVATED WITH PILLOW, PATIENT REPOSITIONED. NO OTHER NEEDS AT THIS TIME. CALL LIGHT IN REACH.
[2025-01-19 05:55] LABS: BASOPHILS 0.7 % (0.1-1.2); EOSINOPHILS 3.2 % (0.7-5.8); LYMPHOCYTES 15.3 % (19.3-51.7); MCH 29.1 PG (25.6-32.2); MCHC 31.0 g/dL (32.2-35.5); MCV 93.9 fL (79.4-94.8); MONOCYTES 7.7 % (4.7-12.5); NEUTROPHILS 72.1 % (34.0-71.1); RBC 2.13 M/uL (3.93-5.22)
[2025-01-19 06:15] LABS: ALT (SGPT) 16.0 U/L (14-59); AST (SGOT) 27.0 U/L (15-37); GLOMERULAR FILTRATION RATE,EST 15.0 mL/min (>60); PROTEIN, TOTAL 6.8 g/dL (6.4-8.2); UREA NITROGEN 65.0 mg/dL (7-18)
[2025-01-19 06:19] LABS: SMEAR REVIEW BLOOD SEE COMMENTS
--- NOTE | 2025-01-19 07:05 | NUR ---
REPORT RECIEVED FROM LINCOLN MARINO AND LINCOLN REID. PATIENT RESTING IN BED WITH HOB ELEVATED. PATIENT WITH EYES CLOSED. EVEN AND UNLABORED RESPIRATIONS NOTED. PATIENT IS 94% ON ROOM AIR. WHITE BOARD UPDATED. CALL LIGHT AND PERSONAL BELONGINGS ARE WITHIN REACH.
--- NOTE | 2025-01-19 08:45 | NUR ---
PATIENT SITTING UP IN BED EATING BREAKFAST AND DENIES ANY NEEDS AT THIS TIME. CALL LIGHT AND PERSONAL BELONGINGS ARE WITHIN REACH.
[2025-01-19] MEDS ORDERED: DAPTOmycin 500 MG/10 ML VIAL IV SCH (09:00)
--- NOTE | 2025-01-19 09:22 | NUR ---
PATIENT MEDICATED PER EMAR. PATIENT DENIES ANY PAIN AT THIS TIME. PATIENT'S IV'S X2 FLUSHED WITH 10ML OF NS, DRESSING ARE INTACT, IV'S ARE SALINE LOCKED. PATIENT'S ASSESSMENT COMPLETED. PATIENT VITAL SIGNS TAKEN AND ARE STABLE. PATIENT WITHOUT FURTHER NEEDS AT THIS TIME. CALL LIGHT AND PERSONAL BELONGINGS ARE WITHIN REACH.
[2025-01-19 09:46] LABS: ABO A; ANTIBODY SCREEN NEGATIVE; RH POSITIVE
[2025-01-19 09:47] LABS: IS CROSSMATCH COMPATIBLE
--- NOTE | 2025-01-19 10:30 | NUR ---
BLOOD RECIEVED FROM LAB AND INFUSING. REJI GUPTA RN VERIFIED BLOOD WITH THIS RN BEFORE ADMINISTRATION. VITAL SIGNS TAKEN AND ARE STABLE BEFORE ADMINISTRATION. THIS RN IN ROOM DURING FIRST 15 MINUTES OF BLOOD INFUSION. PATIENT RESTING BED AND DENIES ANY PAINS.
--- NOTE | 2025-01-19 10:45 | NUR ---
PATIENT WITHOUT REACTION AT THIS TIME TO BLOOD INFUSING. VITAL SIGNS TAKEN, ARE STABLE, AND CHARTED.
--- NOTE | 2025-01-19 10:45 | NUR ---
DR MERRITT AT BEDSIDE
--- NOTE | 2025-01-19 11:02 | NUR ---
NUTRITION F/U: Patient on a 2 gm Na+/60 gm Cons Carb diet. Her appetite has improved. Patient eating 70-100% of meals now. No nutrition intervention at this time. Patient is at low nutrition risk. RD to follow up in 7 days or sooner if needed.
--- NOTE | 2025-01-19 11:06 | NUR ---
PATIENT RESTING IN BED WITH HOB ELEVATED AND EYES CLOSED. EVEN AND UNLABORED RESPIRATIONS NOTED. PATIENT IS 95% ON ROOM AIR, CPOX AT BEDSIDE. CALL LIGHT AND PERSONAL BELONGINGS ARE WITHIN REACH.
--- NOTE | 2025-01-19 11:07 | NUR ---
INTO SEE PATIENT. CHART PENDING ACCEPTANCE AT [facility]. SHE REFUSES ANY OTHER SNF. STATES SHE WILL ONLY STAY IN TOWN
--- NOTE | 2025-01-19 12:00 | NUR ---
LAB FOR CMP CANCELLED, WILL DRAW 2 HOURS AFTER BLOOD IS COMPLETE. THIS RN WILL INPUT NEW ORDER WHEN BLOOD DONE FOR APPROPRIATE TIME.
--- NOTE | 2025-01-19 12:13 | NUR ---
PATIENT MEDICATED PER EMAR. PATIENT RESTING IN BED AND DENIES NEEDS AT THIS TIME. VITAL SIGNS TAKEN AND ARE STABLE. CALL LIGHT AND PERSONAL BELONGINGS ARE WITHIN REACH. BLOOD CONTINUING TO INFUSE. PATIENT TOLERATING WELL. PATIENT'S LUNCH TRAY SET UP IN FRONT OF PATIENT.
--- NOTE | 2025-01-19 12:50 | NUR ---
PATIENT BLOOD INFUSION COMPLETE. IV FLUSHED WITH 10ML OF NS, DRESSING IS INTACT, IV IS SALINE LOCKED. VITAL SIGNS TAKEN AND ARE STABLE.
[2025-01-19 13:20] LABS: ALT (SGPT) 11.0 U/L (14-59); AST (SGOT) 29.0 U/L (15-37); GLOMERULAR FILTRATION RATE,EST 15.0 mL/min (>60); PROTEIN, TOTAL 6.7 g/dL (6.4-8.2); UREA NITROGEN 63.0 mg/dL (7-18)
[2025-01-19] MEDS ORDERED: ALBUMIN HUMAN 25% 100 ML BTL IV ONE (14:00)
--- NOTE | 2025-01-19 15:28 | NUR ---
PATIENT RESTING IN BED WITH HER EYES CLOSED. EVEN AND UNLABORED RESPIRATIONS NOTED. CALL LIGHT AND PERSONAL BELONGINGS ARE WITHIN REACH. IV MEDICATIONS INFUSING PER ORDER.
--- NOTE | 2025-01-19 17:15 | NUR ---
PATIENT MEDICATED PER EMAR. PATIENT SITTING UP IN BED EATING DINNER. PATIENT AGREES TO GET UP TO SHOWER AFTER DINNER AND ONCE IV MEDICATIONS ARE FINISHED INFUSING. PATIENT WITHOUT FURTHER NEEDS AT THIS TIME. CALL LIGHT AND PERSONAL BELONGINGS ARE WITHIN REACH.
--- NOTE | 2025-01-19 18:41 | NUR ---
PATIENT UP IN THE SHOWER AT THIS TIME
--- NOTE | 2025-01-19 19:15 | NUR ---
RECEIVED REPORT FROM LINCOLN TIM. PATIENT LAYING IN BED AWAKE AND ALERT. PAIIENT REPORTING 8/10 PAIN IN BLE AND REQUESTING PAIN MEDS, ROOM CLEANED, NEW CPOX SENSOR PLACED. FRESH ICE WATER GIVEN. PATIENT DENIES OTHER NEEDS AT THIS TIME. CALL LIGHT AND BELONGINGS IN REACH.
--- NOTE | 2025-01-19 20:38 | NUR ---
ASSESSMENT COMPLETED. SCHEDULED MEDICATIONS GIVEN PER EMAR. VS AND I&O'S DOCUMENTED. CPOX ON, WOUND VAC IN PLACE AND VACUUM ON. BLE DRESSING C/D/I, NO DRAINAGE OR REDNESS NOTED. FOELY DRAINING WITHOUT DIFFICULTY. IV'S PATENT AND SALINE LOCKED X2. LEGS ELEVATED WITH PILLOWS. PATINET DENIES NEEDS AT THIS TIME. CALL LIGHT IN REACH.
--- NOTE | 2025-01-19 23:47 | NUR ---
ROUNDED ON PATINET, RESTING WTIH EYES CLOSED, RESPIRATIONS EVEN AND UNLABORED. WOULD VAC IN PLACE WITH SUCTION ON, LEGS ELEVATED. CPOX ON. GODDARD DRAINING WITHOUT DIFFICUTLY. NO NEEDS IDENTIFED AT THIS TIME. CALL LIGHT IN REACH.
[2025-01-20] VITALS (9 sets, daily range): BP systolic 122–135; BP diastolic 59–90
--- NOTE | 2025-01-20 02:30 | NUR ---
ROUNDED ON PATIENT, LAYING WITH HOB ELEVATED, LEGS ELEVATED WTIH PILLOWS. RESTING WITH EYES CLOSED, RESPIRATIONS EVEN AND UNLABORED, NO S/X OF DISTRESS OR PAIN. GODDARD DRAINING WITHOUT DIFFICULTY, WOULD VAC SUCTIONING. NO NEEDS IDENTIFIED AT THIS TIME, CALL LIGHT IN REACH.
--- NOTE | 2025-01-20 03:47 | NUR ---
ROUNDED ON PATINET, LAYING ON BACK IN BED HOB ELEVATED. RESTING WITH EYES CLOSED, RESPIRATIONS EVEN AND UNLABORED ON ROOM AIR. CPOX ON, GODDARD AND WOUND VAC DRAINING WTIHOUT DIFFICULTY. LEGS ELEVATED WITH PILLOWS. NO NEEDS IDENTIFIED AT THIS TIME. CALL LIGHT IN REACH.
--- NOTE | 2025-01-20 05:27 | NUR ---
PHOTO RETOUCHER OBTAINED VITALS AND I&O. GODDARD EMPTIED. PT STATES NO NEEDS AT THIS TIME. CALL LIGHT WITHIN REACH.
--- NOTE | 2025-01-20 05:45 | NUR ---
ASSESSMENT COMPLETED. PATIENT RESTING IN BED AWAKE AND ALERT. PATIENT DENIES PAIN AT THIS TIME. REPOSITIONED IN BED. ICE WATER REFRESHED. PATIENT DENIES NEEDS AT THIS TIME. CPOX ON, GODDARD AND WOUND VAC DRAINING WITHOUT DIFFICULTY. CALL LIGHT IN REACH.
[2025-01-20 06:26] LABS: BASOPHILS 0.7 % (0.1-1.2); EOSINOPHILS 4.0 % (0.7-5.8); LYMPHOCYTES 18.5 % (19.3-51.7); MCH 29.0 PG (25.6-32.2); MCHC 31.7 g/dL (32.2-35.5); MCV 91.5 fL (79.4-94.8); MONOCYTES 7.4 % (4.7-12.5); NEUTROPHILS 68.4 % (34.0-71.1); RBC 2.48 M/uL (3.93-5.22)
[2025-01-20 06:37] LABS: GLOMERULAR FILTRATION RATE,EST 17.0 mL/min (>60); UREA NITROGEN 63.0 mg/dL (7-18)
--- NOTE | 2025-01-20 07:21 | NUR ---
REPORT RECEIVED FROM CASH APPLICATIONS COORDINATOR RN TIA AND LINCOLN REID. PATIENT IS LYING IN BED WITH EYES CLOSED AND RESPIRATIONS ARE EVEN AND UNLABORED. CPOX AT BEDSIDE. CALL LIGHT AND PERSONAL BELONGINGS ARE WITHIN REACH.
--- NOTE | 2025-01-20 07:30 | NUR ---
CHART UPDATES SENT TO [facility].
--- NOTE | 2025-01-20 09:30 | NUR ---
PATIENT IS LYING IN BED WITH EYES CLOSED AND RESPIRATIONS ARE EVEN AND UNLABORED. CALL LIGHT AND PERSONAL BELONGINGS ARE WITHIN REACH. CPOX AT BEDSIDE.
--- NOTE | 2025-01-20 10:45 | NUR ---
PATIENT IS SITTING IN THE CHAIR WITH BLE ELEVATED. PATIENT WITH EYES CLOSED AND RESPIRATIONS ARE EVEN AND UNLABORED. PATIENT IS ON ROOM AIR WITH THE CPOX AT BEDSIDE. CALL LIGHT AND PERSONAL BELONGINGS ARE WITHIN REACH.
[2025-01-20] MEDS ORDERED: TRIMETHOPRIM/SULFAMETHOXAZOLE 1 EA TAB PO SCH (11:18)
--- NOTE | 2025-01-20 11:24 | NUR ---
INTO SEE PATIENT. PATIENT STILL WILLING TO GO TO [facility]. [facility] DOES NOT HAVE ANY BEDS UNTIL POTENTIALLY THURSDAY. PATIENT STILL PENDING ACCEPTANCE.
[2025-01-20] MEDS ORDERED: SPIRONOLACTONE 25 MG TAB PO SCH (12:30)
--- NOTE | 2025-01-20 14:20 | NUR ---
WOUND CARE NURSE AT BEDSIDE. PILLOW UNDER LEFT HIP, NO OTHER NEEDS AT THIS TIME, CALL LIGHT WITHIN REACH, TV ON.
--- NOTE | 2025-01-20 14:51 | NUR ---
SCHOOL FUNDRAISING DIRECTOR ASKED FOR WOUND RN TO ASSESS AND DO DRESSING CHANGE FOR THIS PATIENT. PATIENT IS SITTING IN HER RECLINER AND OKAYS DRESSING CHANGES AT THIS TIME. RIGHT LOWER LEG DRESSING IS SATURATED IN SEROSANGUINOUS AND YELLOW/GREEN DRAINAGE. DRESSINGS (GAUZE AND ROLL GAUZE) ARE REMOVED AND DISCARDED. WOUNDS ARE CLEANED WITH VASHE WOUND CLEANSER. FOAM AND GAUZE, ROLL GAUZE AND ЕЛЕНА WRAP ARE REAPPLIED. LEFT LATERAL WOUND HAS NPWT DRESSING APPLIED. THIS IS REMOVED AND BRIGHT RED, BEEFY GRANULATION TISSUE IS OBSERVED. THERE IS ESCHAR TISSUE NOTED FROM 2:00 AND 7:00-10:00 AT THE PERIWOUND EDGE. WOUND IS CLEANED WITH WOUND CLEANSER AND PATIENT REPORTS BURNING SENSATION WITH THIS. SALINE IS USED TO RINSE THE WOUND AND PATIENT VERBALIZES "THIS FEELS BETTER." BARRIER WIPE IS APPLIED TO ANDREY-WOUND SKIN. BLACK SPONGE IS CUT TO FIT INSIDE THE WOUND. DRAPE APPLIED OVER THE WOUND. QUARTER SIZED HOLE IS CUT IN THE DRAPE. TRAC PAD IS APPLIED, TUBING IS CONNECTED AND VAC IS TURNED ON. DRAPE AND SPONGE SUCK INTO THE WOUND BED NICELY AND NO LEAKS ARE NOTED. CANNISTER NOT CHANGED ONLY 50 ML BRIGHT RED DRAINAGE IS NOTED TO THE CANISTER. PATIENT TOLERATES DRESSING CHANGES WELL. NEXT RIGHT LEG DRESSING CHANGE DUE TOMORROW. NEXT LEFT LEG DRESSING CHANGE IS DUE IN 72 HOURS.
--- NOTE | 2025-01-20 18:00 | NUR ---
Back to bed from chair by PT, eating, IVF infusing. f/c patent, L leg vacuum pump in place, dressing R leg. no c/o pain
--- NOTE | 2025-01-20 21:14 | NUR ---
OPERATION AGENT OBTAINED BLOOD SUGAR, VITALS AND I&O. PT STATES NO NEEDS AT THIS TIME. CALL LIGHT WITHIN REACH.
--- NOTE | 2025-01-20 21:35 | NUR ---
PT ASSESSED AND MEDICATION GIVEN. VSS. BS 152, SLIDING SCALE INSULIN GIVEN. WOUND CARE DONE DURING DAY SHIFT, DRESSINGS CDI. WOUND VAC IN PLACE AND WORKING WELL. GODDARD IN PLACE AND DRAINING WELL PER GRAVITY. SAFETY PRECAUTIONS MAINTAINED. CALL LIGHT WITHIN REACH. WILL CONTINUE TO MONITOR.
[2025-01-21] VITALS (9 sets, daily range): BP systolic 116–145; BP diastolic 49–66
--- NOTE | 2025-01-21 04:51 | NUR ---
HECTOR AND LINCOLN BOOSSDTED PT. VITALS AND I&O OBTANED. PT STATES NO NEEDS AT THIS TIME. CALL LIGHT WITHIN REACH.
--- NOTE | 2025-01-21 06:21 | NUR ---
PT RESTED WELL THROUGHOUT THE SHIFT. VSS. WOUND VAC IN PLACE. RIGHT LEG DRESSINGS CDI. GODDARD IN PLACE AND DRAINING WELL PER GRAVITY, GOOD OUTPUT NOTED. SAFETY PRECAUTIONS MAINTAINED. CALL LIGHT WITHIN REACH. WILL CONTINUE TO MONITOR.
--- NOTE | 2025-01-21 07:15 | NUR ---
RECIEVED REPORT FROM LINCOLN MONTIEL. PATIENT LAYING IN BED TALKING ON THE PHONE, REPORTS NO NEEDS AT THIS TIME. CALL LIGHT WITHIN REACH, HATTIE UPDATED.
--- NOTE | 2025-01-21 07:49 | NUR ---
PATIENT IN BED AT THIS TIME. POLICE LIAISON CHARTED HOURLY ROUNDS AND BLOOD SUGAR. PATIENT REFUSED CHAIR AT THIS TIME. CALL LIGHT WITHIN REACH, NO FURTHER NEEDS.
[2025-01-21 08:18] LABS: BASOPHILS 0.3 % (0.1-1.2); EOSINOPHILS 4.1 % (0.7-5.8); LYMPHOCYTES 17.2 % (19.3-51.7); MCH 29.0 PG (25.6-32.2); MCHC 31.1 g/dL (32.2-35.5); MCV 93.3 fL (79.4-94.8); MONOCYTES 8.3 % (4.7-12.5); NEUTROPHILS 69.8 % (34.0-71.1); RBC 2.55 M/uL (3.93-5.22)
[2025-01-21 08:31] LABS: GLOMERULAR FILTRATION RATE,EST 18.0 mL/min (>60); UREA NITROGEN 60.0 mg/dL (7-18)
--- NOTE | 2025-01-21 10:16 | NUR ---
PATIENT IN BED AT THIS TIME. ASSISTANT PROPERTY MANAGER CARTED VITALS AND I&O'S. CALL LIGHT WITHIN REACH, NO FRUTHER NEEDS.
--- NOTE | 2025-01-21 11:45 | NUR ---
PT LAYING IN BED WATCHING TV, REPORTS PRN PAIN MED HAS HELPED WITH BLE PAIN, NO OTHER NEEDS AT THIS TIME. CALL LIGHT WITHIN REACH.
--- NOTE | 2025-01-21 12:12 | NUR ---
GODDARD CARE DONE ON PT, PT REPOSITIONED IN BED/ LUNCH TRAY SET UP. REPORTS NO NEEDS AT THIS TIME, CALL LIGHT WITHIN REACH.
--- NOTE | 2025-01-21 13:50 | NUR ---
PT SITTING UP IN BED WATCHING TV, PT AT BEDSIDE TO WORK WITH PT. NO NEEDS AT THIS TIME, CALL LIGHT WITHIN REACH.
--- NOTE | 2025-01-21 14:45 | NUR ---
DAUGHTER AT BEDSIDE VISITNG WITH PATIENT, NO OTHER NEEDS AT THIS TIME, CALL LIGHT WITHIN REACH.
--- NOTE | 2025-01-21 16:40 | NUR ---
PTS BLE ASSESSED, RLE HAS SMALL AMOUNT OF RED DRAINAGE SEEPING THROUGH ЕЛЕНА WRAP, WOUND VAC C/D/I. BLE ELEVATED ON PILLOW, NO OTHER NEEDS AT THIS TIME, CALL LIGHT WITHIN REACH.
--- NOTE | 2025-01-21 17:44 | NUR ---
PT IN BED WITH HEAD UP, EYES CLOSED ON AND OFF, TV ON, NO VISITORS IN THE ROOM. PT HAS FRESH ICE WATER IN ROOM AND SHE IS FINISHING DIET SPRITE SHE HAD WITH HER DINNER. EDUCATED PT ON MENU AND ORDERING ALTERNATIVES IF SHE DOES NOT LIKE WHAT IS BEING SERVED. BROUGHT PT A MENU FOR ORDERING IN THE FUTURE. ROOM CLEANED AND TRASH REMOVED FROM ROOM. GODDARD EMPTIED AND RECORDED. CHECKED PT'S ANDREY AREA FOR FECES AND PERFORMED ANDREY CARE - CATHETER CARE. PT HAS CALL LIGHT AND IS REPORTING NEEDING NOTHING MORE AT THIS TIME.
--- NOTE | 2025-01-21 19:12 | NUR ---
PT REPORTED NEEDCING TO USE THE COMMODE. WHILE SHE WAS ON THE COMMODE I COMPLETED AN ENTIRE LINEN CHANGE. PT DID NOT GO ON THE COMMODE, BUT WE DID ANDREY CARE THEN RETURNED HER TO BED. PT HAS FRESH ICE WATER NEAR BED. I EMPTIED ALL TRASHES AND THE PT HAS THE CALL LIGHT.
--- NOTE | 2025-01-21 19:36 | NUR ---
REPORT RECEIVED FROM DAY SHIFT RN. PT LYING IN BED ALERT AND ORIENTED. DENIES NEEDS. WHITE BOARD UPDATED. CALL LIGHT IN REACH.
--- NOTE | 2025-01-21 20:59 | NUR ---
PATIENT IS LAYING IN BED. PATIENTS VITALS, I&OS, AND CATHETER WAS DONE. PATIENT WAS PROVIDED WITH A WARM WASHCLOTH. PATIENT DECLINED TO BRUSH TEETH DUE TO BEING TIRED. CALL LIGHT IS WITHIN REACH AND NO FURTHER NEEDS AT THIS TIME.
--- NOTE | 2025-01-21 21:37 | NUR ---
EVENING ASSESSMENT COMPLETE. SCHEDULED MEDS ADMIN PER EMAR. PT DENIES PAIN OR NAUSEA. BLE ELEVATED ON PILLOW. WOUND VAC IN PLACE ON LLE. DRESSING INTACT ON RLE WITH SCANT AMOUNT RED DRAINAGE. CMS INTACT. CPOX IN PLACE. SpO2 96% ON RA. PT DENIES SOB. PT DENIES QUESTIONS OR CONCERNS. CALL LIGHT IN REACH.
--- NOTE | 2025-01-21 23:46 | NUR ---
PT RESTING IN BED WITH EYES CLOSED. RESPIRATIONS EVEN. CALL LIGHT IN REACH.
[2025-01-22] VITALS (8 sets, daily range): BP systolic 104–149; BP diastolic 61–83
--- NOTE | 2025-01-22 01:59 | NUR ---
PT RESTING IN BED WITH EYES CLOSED. RESPIRATIONS EVEN. CALL LIGHT IN REACH.
--- NOTE | 2025-01-22 04:16 | NUR ---
PT RESTING IN BED WITH EYES CLOSED. RESPIRATIONS EVEN. CALL LIGHT IN REACH.
--- NOTE | 2025-01-22 05:51 | NUR ---
VS AND I&O OBTAINED. PT DENIES PAIN. BLE ELEVATED ON PILLOW. DRESSINGS UNCHANGED. PT DENIES NEEDS. CALL LIGHT IN REACH.
--- NOTE | 2025-01-22 07:10 | NUR ---
RECIEVED REPORT FROM LINCOLN JONES. PT LYING IN BED AWAKE WATCHING TELEVISION, STATES NO CURRENT NEEDS. CALL LIGHT WITHIN REACH.
[2025-01-22 07:19] LABS: BASOPHILS 0.4 % (0.1-1.2); EOSINOPHILS 6.4 % (0.7-5.8); LYMPHOCYTES 20.2 % (19.3-51.7); MCH 28.9 PG (25.6-32.2); MCHC 30.8 g/dL (32.2-35.5); MCV 94.0 fL (79.4-94.8); MONOCYTES 12.7 % (4.7-12.5); NEUTROPHILS 59.9 % (34.0-71.1); RBC 2.49 M/uL (3.93-5.22)
[2025-01-22 07:35] LABS: ALT (SGPT) 10.0 U/L (14-59); AST (SGOT) 39.0 U/L (15-37); GLOMERULAR FILTRATION RATE,EST 16.0 mL/min (>60); PROTEIN, TOTAL 6.9 g/dL (6.4-8.2); UREA NITROGEN 60.0 mg/dL (7-18)
--- NOTE | 2025-01-22 11:41 | NUR ---
SKIN ASSESSMENT COMPLETED WITH LINCOLN AL. PT DENIES PAIN AT THIS TIME. DRESSING CHANGE TO RLE COMPLETED PER ORDER, PT TOLERATES WELL. SMALL AMOUNT OF SEROSANGUINOUS DRAINAGE PRESENT ON OLD DRESSING. WOUND VAC REMAINS IN PLACE AND FUNCTIONING PER ORDER. GODDARD CARE COMPLETE AT THIS TIME. PT STATES NO CURRENT NEEDS, CALL LIGHT WITHIN REACH.
[2025-01-22] MEDS ORDERED: POLYETHYLENE GLYCOL 3350 1 PACKET PO SCH (12:00)
[2025-01-22] MEDS ORDERED: DOXYCYCLINE HYCLATE 100 MG CAP PO SCH (12:15)
--- NOTE | 2025-01-22 13:45 | NUR ---
PT AMBULATES TO BED WITH 1PA AND FWW. DRESSING REMAINS C/D/I, WOUND VAC DRESSING INTACT WITH VAC ON PER ORDER. FOOT PUMPS IN PLACE. PT STATES NO CURRENT NEEDS, CALL LIGHT WITHIN REACH.
--- NOTE | 2025-01-22 19:23 | NUR ---
REPORT RECEIVED FROM DAY SHIFT RN. PT LYING IN BED RESTING WITH EYES CLOSED. RESPIRATIONS EVEN. WHITE BOARD UPDATED. CALL LIGHT IN REACH.
--- NOTE | 2025-01-22 21:41 | NUR ---
EVENING ASSESSMENT COMPLETE. SCHEDULED MEDS ADMIN PER EMAR. PT REPORTS LLE PAIN 08/30. PRN FOR PAIN ADMIN PER EMAR. BLE ELEVATED ON PILLOW. DRESSING TO RLE CDI. WOUND VAC IN PLACE LLE. CMS INTACT. 2PA TO REPOSTION IN BED. GODDARD CARE DONE BY BOOTH CASHIER. VS AND I&O OBTAINED. PT DENIES QUESTIONS OR CONCERNS. CALL LIGHT IN REACH.
--- NOTE | 2025-01-23 00:46 | NUR ---
PT RESTING IN BED WITH EYES CLOSED. RESPIRATIONS EVEN. CALL LIGHT IN REACH.
--- NOTE | 2025-01-23 02:34 | NUR ---
CALL LIGHT ANSWERED. PT UP TO BSC WITH FWW AND 2PA TO HAVE XL SOFT BM. DURING TRANSFER GODDARD DRAINAGE BAG BECAME DISCONNECTED FROM GODDARD CATHETER. STAT LOCK WAS IN PLACE. GODDARD CATH CLEANED AND NEW DRAINAGE BAG PLACED. PT NOTED TO HAVE SPOTS OF BLOOD ON LINENS, GOWN, AND HANDS. SCRATCHES NOTED ON ARMS, BACK, AND THIGHS. PT REPORTS FEELING "SWEATY" AND "ITCHY." ENCOURAGED PT TO NOT SCRATCH DUE TO POSSIBILITY OF WOUNDS. PT NOT RECEPTIVE. BATH WIPES UTILIZED TO CLEANS BACK, THIGHS, ARMS, AND HANDS. LOTION APPLIED AFTER DRYING SKIN. ROOM TEMP ADJUSTED. STAFF ASSIST WITH ANDREY CARE. BACK TO BED. ЕЛЕНА WRAP AND KERLEX CHANGED ON RLE. BLE ELEVATED ON PILLOWS. NO FURTHER NEEDS. CALL LIGHT IN REACH.
--- NOTE | 2025-01-23 04:08 | NUR ---
PT IN BED RESTING WITH EYES CLOSED. RESPIRATIONS EVEN. CALL LIGHT IN REACH.
[2025-01-23 05:18] VITALS: BP 138/67
--- NOTE | 2025-01-23 05:25 | NUR ---
PT RESTING WITH EYES CLOSED. AWAKENS EASILY. VS AND I&O OBTAINED. NO C/O PAIN AT THIS TIME. DENIES NEEDS. CALL LIGHT IN REACH.
--- NOTE | 2025-01-23 07:23 | NUR ---
UPDATES FAXED TO [facility]
--- NOTE | 2025-01-23 07:37 | NUR ---
RECEIVED REPORT FROM [facility] RN Delia JONES. PATIENT RESTING IN BED AT THIS TIME, EYES CLOSED. LAB JUST EXITED ROOM. PT DOES NOT OPEN EYES WHEN THIS RN GOES INTO ROOM. PT ALLOWED TO CONTINUE TO REST AT THIS TIME. CALL LIGHT WITHIN REACH.
[2025-01-23 07:42] LABS: BASOPHILS 0.3 % (0.1-1.2); EOSINOPHILS 6.1 % (0.7-5.8); LYMPHOCYTES 18.3 % (19.3-51.7); MCH 29.3 PG (25.6-32.2); MCHC 31.1 g/dL (32.2-35.5); MCV 94.4 fL (79.4-94.8); MONOCYTES 12.2 % (4.7-12.5); NEUTROPHILS 62.8 % (34.0-71.1); RBC 2.49 M/uL (3.93-5.22)
[2025-01-23 08:01] LABS: AST (SGOT) 36 U/L (15-37); GLOMERULAR FILTRATION RATE,EST 16 mL/min (>60); PROTEIN, TOTAL 6.9 g/dL (6.4-8.2); UREA NITROGEN 57 mg/dL (7-18)
[2025-01-23 08:05] LABS: ALT (SGPT) <6 U/L (14-59)
--- NOTE | 2025-01-23 08:05 | NUR ---
MD NOTIFIED OF PLATELETS BEING LOW, AT THIS TIME WOULD LIKE TO DC THE ASPIRIN. THIS RN DISCONTINED ORDER. NO OTHER ORDERS AT THIS TIME.
[2025-01-23 08:19] VITALS: BP 168/78
[2025-01-23 08:32] VITALS: BP 168/78
[2025-01-23 08:43] VITALS: BP 177/57
--- NOTE | 2025-01-23 08:45 | NUR ---
HOURLY ROUNDING PATIENT LAYING IN BED, TALKING TO DAUGHTER ON THE [place] NO REQUEST FROM PATIENT AT THSI TIME CALL LIGHT HAS BEEN PLACED WITHIN REACH
--- NOTE | 2025-01-23 09:59 | NUR ---
PATIENT POTENTIALLY TRANSFERRING TO A DIFFERENT HOSPITAL.
--- NOTE | 2025-01-23 10:55 | NUR ---
PT RESTING WIHT EYES CLOSED, RESP EVEN/UNLABORED. PT INFORMED THIS MORNING WHEN DR. LORENZO ROUNDED THAT HE WILL BE BACK THIS AFTERNOON AND WOULD LIKE TO ASSESS WOUND, WILL DEFER DRESSING CHANGE TO RIGHT LEG PER MD REQUEST TO SEE WOUNDS THIS AFTERNOON. PT VERBALIZED UNDERSTANDING AND AGREES.
[2025-01-23] MEDS ORDERED: DOXYCYCLINE HY100 MG PO (11:34)
--- NOTE | 2025-01-23 12:01 | NUR ---
PT SITTING UP IN BED - ATE ABOUT 50% ON LUNCH, STATES IT WAS NOT VERY GOOD, DIDNT ENJOY THE PROTEIN. INSULIN GIVEN PER SLIDING SCALE - SEE MAR. DENIES PAIN. PT STATES HER DAUGHTER WILL COME BY WHEN SHE IS TRANSFERRED TO [facility] HER WALKER. ALL PT CARE NEEDS MET AT THIS TIME. CALL LIGHT WITHIN REACH.
[2025-01-23 12:21] VITALS: BP 152/59
--- NOTE | 2025-01-23 12:31 | NUR ---
REPORT CALLED TO KATI AT [facility]. NO OTHER QUESTIONS POST REPORT.
== END 2025-01-23 13:55 | disposition short-term general hospital (02) | DRG 570 ==
LOC: ED 08:15 → MS 13:52
PROVIDERS: Emergency Medicine; Internal Medicine; Student in an Organized Health Care Education/Training Program; Surgery; ADMIT Family Medicine; ATTEND Family Medicine
PROC: 30233N1 Transfusion of Nonautologous Red Blood Cells into Peripheral Vein, Percutaneous Approach (ICD-10-PCS; 2025-01-11)
PROC: 3E03329 Introduction of Other Anti-infective into Peripheral Vein, Percutaneous Approach (ICD-10-PCS; 2025-01-11)
PROC: 0JBN0ZZ Excision of Right Lower Leg Subcutaneous Tissue and Fascia, Open Approach (ICD-10-PCS; principal; 2025-01-16 13:00)
PROC: 0JBP0ZZ Excision of Left Lower Leg Subcutaneous Tissue and Fascia, Open Approach (ICD-10-PCS; principal; 2025-01-16 13:00)
PROC: 30233J1 Transfusion of Nonautologous Serum Albumin into Peripheral Vein, Percutaneous Approach (ICD-10-PCS; 2025-01-18)
DX: L03.115 Cellulitis of right lower limb (principal); I21.A1 Myocardial infarction type 2; I50.33 Acute on chronic diastolic (congestive) heart failure; N18.4 Chronic kidney disease, stage 4 (severe); I13.0 Hypertensive heart and chronic kidney disease with heart failure and stage 1 through stage 4 chronic kidney disease, or unspecified chronic kidney disease; N17.9 Acute kidney failure, unspecified; R18.8 Other ascites; E11.52 Type 2 diabetes mellitus with diabetic peripheral angiopathy with gangrene; K74.60 Unspecified cirrhosis of liver; Z66 Do not resuscitate; B95.62 Methicillin resistant Staphylococcus aureus infection as the cause of diseases classified elsewhere; E78.2 Mixed hyperlipidemia; M19.90 Unspecified osteoarthritis, unspecified site; E11.22 Type 2 diabetes mellitus with diabetic chronic kidney disease; L03.116 Cellulitis of left lower limb; D69.6 Thrombocytopenia, unspecified; D70.9 Neutropenia, unspecified; I25.10 Atherosclerotic heart disease of native coronary artery without angina pectoris; R22.43 Localized swelling, mass and lump, lower limb, bilateral; E66.9 Obesity, unspecified; D63.1 Anemia in chronic kidney disease; E87.5 Hyperkalemia; Z87.19 Personal history of other diseases of the digestive system; Z88.8 Allergy status to other drugs, medicaments and biological substances; Z95.5 Presence of coronary angioplasty implant and graft; Z88.7 Allergy status to serum and vaccine; Z68.33 Body mass index [BMI] 33.0-33.9, adult; Z79.899 Other long term (current) drug therapy; Z79.51 Long term (current) use of inhaled steroids; Z79.82 Long term (current) use of aspirin
CPT/HCPCS: 00400; 36415; 51798; 71045; 73700; 74176; 76705; 80048; 80053; 83550; 83605; 83735; 83880; 84100; 84484; 85014; 85018; 85025; 85060; 85610; 86850; 86900; 86901; 86922; 87040; 87070; 87075; 87077; 87186; 87205; 88304; 93005; 93010; 93306; 96365; 97110; 97162; 97166; 97530; 97535; 99285-25; A9270; J0131; J0688; J0878; J1650; J1815; J1938; J2003; J2405; J2704; J3010; J7121; P9016; P9047